=== PATIENT | female | born 1960 ===

== ENCOUNTER 2017-06-03 11:08 | Inpatient (IN) ==
[2017-06-03 11:55] LABS: Basophils % 0.2 % (0.0-0.8); Eosinophils % 0.1 % (0.00-10.9); Hematocrit 25.9 VOL% (35.7-47.0); Hemoglobin 10.2 GM/DL (12.0-16.0); Immature Granulocytes % 0.8 %; Immature Granulocytes Absolute 0.07 #; Lymphocytes # 0.8 10*3/uL (1.4-4.0); Lymphocytes % 8.8 % (21.3-54.2); Mean Corpuscular HGB Conc 39.4 GM/DL (32-36); Mean Corpuscular Hemoglobin 37 PG (27-34); Mean Corpuscular Volume 94.2 FL (87-102); Mean Platelet Volume 10.1 FL (9.6-12.0); Monocytes # 1.1 10*3/uL (0.11-0.8); Monocytes % 13.1 % (1.7-12.7); Neutrophils # 6.5 10*3/uL (1.4-7.4); Platelet Count 115 T/CUMM (130-400); Red Blood Count 2.75 MC/CUMM (3.8-5.5); White Blood Count 8.5 T/CUMM (4-12)
--- NOTE | 2017-06-03 11:57 | Emergency Department Note ---
Samara Berry Rolonda, am scribing for, and in the presence of, Angel Roper MD 11: 39. Jacquelin Berry James D, MD, personally performed the services described in this documentation, ascribed by Galindo Pascual in my presence, and it is both accurate and complete 148 . Arrival - Arrival Chief Complaint: Abdominal / Flank Pain Stated Complaint: water build up in abdomin ED Nursing Triage Note: Pt c/o distended abd x 4 days. Denies abd pain. Mode of Arrival: Wheelchair Limitations: No Limitations Source: Patient, Old Records Reviewed, RN Notes Reviewed - History of Present Illness HPI Narrative: Pt is a 56 y/o female who presents to the ED with c/o "distended abdomen" with an onset of x4 days. Pt has a PMHx of GI problems, gastritis, and stated that she stopped EtOH usage in March. Mother states that abdomen has gotten worse. Pt confirms SOB and that she has been taking fluid medicine at home. She states that she had fluid drawn off x2 weeks ago. Pt denies dark urine and abdominal pain. No other complaint/pain in ED. Onset (ago): day(s) Consistency: constant Severity: mild Severity scale (1-10): 3 Allergies/Adverse Reactions: Allergies Allergy/AdvReac Type Severity Reaction Status Date / Time No Known Allergies Allergy Verified 12/13/16 08:17 Home Medications: Home Medications Medication Instructions Recorded Confirmed Type Furosemide Tab [Lasix Tab] 20 mg PO DAILY 12/13/16 05/15/17 History Spironolactone [Aldactone] 100 mg PO DAILY 12/13/16 05/15/17 History Metoclopramide Liquid [Reglan 5 mg PO BID 05/15/17 05/15/17 History Liquid] Pantoprazole Tab [Protonix Tab] 40 mg PO DAILY 05/15/17 05/15/17 History Propranolol Tab [Inderal Tab] 10 mg PO TID 05/15/17 05/15/17 History Review of System - Review of System 12 point system: reviewed and no additional remarkable complaints except as stated - Review of System Constitutional: Absent: chills, fever Eyes: Absent: discharge Head/Ears/Nose/Throat: Absent: earache Respiratory: Absent: cough Cardiovascular: Absent: chest pain Gastrointestinal: Absent: abdominal pain ("distended") Musculoskeletal: Absent: arm pain, back pain Skin: Absent: rash Neurological: Absent: headache Psychiatric: Absent: anxiety Endocrine: Absent: cold intolerance Hematological/Lymphatic: Absent: easy bleeding Allergic/Immunologic: Absent: facial swelling Medical,Surgical,& Family Hx - Medical History Cardio: No history of: Cardiac Dysrhythmia, [place], Pacemaker Neurology: No history of: Cerebral Hemorrhage, Migraine, Seizures HEENT: No history of: Ear Problem, Eye Problem, Dental Problems Respiratory: History of: Respiratory Problems (sob with exertion) Genitourinary: History of: Problems (oliguria) Gastrointestinal: History of: GERD, Liver Problems (alcoholic cirrhosis, hemachromatosis), GI Problems (ascites and constipation) Hematology: No history of: Anemia, Blood Transfusion Reaction Other: History of: Miscellaneous Medical Problems (alcholism) No history of: Anesthesia Reactions, Cancer - Surgical History Cardiac Surgeries: Patient Denies: Cardiac Catheterization, Carotid Endarterectomy Neurologic Surgeries: Patient denies: Cerebral Hemorrhage HEENT Surgeries: Patient denies: Carotid Endarterectomy, Eye Surgery, Tonsilectomy & Adenoidectomy Abdominal Surgeries: Patient denies: Abdominal Surgery, Appendectomy, Cholecystectomy, Colonoscopy , EGD Reproductive Surgeries: Surgical HX of;: Section (x 1), Dilation and Curettage (x1) Orthopedic Surgeries: Surgical HX of;: Orthopedic Surgery (left wrist) - Family History Family History: Reports;: Family Diabetes (mother) - Social History Smoking Status: Former smoker Exam Vital Signs: Vital Signs Temperature 98.3 F 06/03/17 11:20 Pulse Rate 87 06/03/17 14:45 Respiratory Rate 18 06/03/17 13:45 Blood Pressure 109/66 06/03/17 14:45 O2 Sat by Pulse Oximetry 100 06/03/17 14:45 GENERAL: This is a female, chronically ill-appearing in no apparent distress. VITAL SIGNS: Reviewed HEENT: Head is atraumatic and normocephalic. Pupils are equal round react to light. Extraocular movements are intact. Scleral icterus. Ecchymoses of the nasolabial folds bilaterally. Oropharynx is benign with moist mucous membranes. NECK: Neck is soft and supple without tenderness. There are no masses. There is no lymphadenopathy. LUNGS: Lungs are clear to auscultation. Chest rises symmetrically. There is no chest wall tenderness. CV: Heart is regular rate and rhythm with 2/6 systolic ejection murmur at the left sternal border. ABDOMEN: Abdomen is soft, nontender to palpation. Abdomen is distended with fluid. Liver edge is palpable about 2-3 fingerbreadths below the right costal margin. SKIN: Skin is warm and dry. No rash. EXTREMITIES: Patient has full range of motion without tenderness. There is 2-3 + pitting pedal edema. NEUROLOGIC: Awake, oriented to person. Cranial nerves II through XII are grossly intact. Motor is 5 over 5 in all extremities bilaterally. Results - Labs CBC & BMP: 06/03/17 11:42 06/03/17 11:42 Lab Results: I have reviewed the patients labs Labs: Laboratory Tests 06/03/17 11:42 INR 1.4 Disposition Clinical Impression: Cirrhosis, Hyponatremia Case discussed with: patient Disposition: Still a Patient Condition: Stable Time of Disposition: 15:53
[2017-06-03 11:58] LABS: INR 1.4; PT Patient Result 14.7 SECS; Partial Thromboplastin Time 35.4 SECS (0-40)
--- NOTE | 2017-06-03 12:00 | XRay Report ---
XR chest 1V portable Indication: Dyspnea. Chest one view: Lungs are hypoinflated with atelectasis both lung bases. Additionally, para bronchial thickening of the lungs noted. No focal pneumonia. Heart size is normal. Mediastinal contours unremarkable. Couple of calcified granulomata are present. Impression: Bibasilar atelectasis. Interstitial prominence of the lungs with peribronchial thickening suggests underlying airways disease. PROCEDURE INTERPRETED AT [facility] DEPARTMENT OF RADIOLOGY Final Report Signed by: Rogelio Bernstein M.D.
[2017-06-03 12:14] LABS: Hypochromasia 2+
[2017-06-03 12:29] LABS: Albumin 1.9 G/DL (3.4-5.0); Bilirubin,Total 4.1 MG/DL (0.2-1.0); Calcium 7.9 MG/DL (8.5-10.1); Osmolality,Calculated 224.6 MOS/KG (273-304); Potassium 4.4 MMOL/L (3.5-5.1)
[2017-06-03] MEDS ORDERED: GLUCAGON 1 MG VIAL IM PRN (16:05)
[2017-06-03] MEDS ORDERED: ONDANSETRON 4 MG/2 ML VIAL IV PRN (16:05)
[2017-06-03] MEDS ORDERED: DEXTROSE 50% 25 GM/50 ML SYRINGE IV PRN (16:05)
[2017-06-03] MEDS ORDERED: MORPHINE 2 MG/1 ML SYRINGE IV PRN (16:05)
[2017-06-03] MEDS ORDERED: ALBUTEROL 2.5 MG/3 ML NEB RESP TX PRN (16:05)
[2017-06-03] MEDS ORDERED: ALBUMIN 25% 12.5 GM/50 ML VIAL IV ONE (16:18)
[2017-06-03] MEDS ORDERED: FAMOTIDINE 20 MG/2 ML VIAL IV SCH (16:30)
[2017-06-03] MEDS ORDERED: ALBUMIN 25% 12.5 GM in PREMIX 1 EACH IV ONE (16:38)
--- NOTE | 2017-06-03 16:54 | Hospitalist History & Physical ---
Assessment and Plan - Time spent with patient Time spent with patient: Greater than 30 minutes (1) Hyponatremia Status: Acute Assessment and plan: Admit to ICU for close monitoring. Consult GI. Will start IV diuretics. Will repeat labs in the a.m. Will discuss with Dr Rodriguez for further recommendations with care. Current Visit: Yes (2) Cirrhosis Status: Acute Assessment and plan: ADmit; consult GI; paracentesis in the ED was performed; will monitor closely in ICU. Current Visit: Yes History of Present Illness Chief complaint: abdominal distention/discomfort History of present illness: Ms. Breaux is a 56 year old [place] female with PMHx of oliguria, GERD, alcoholic cirrhosis, hemachromatosis, ascites and constipation; presented to the ED with c/o "distended abdomen" with an onset x4 days. She reports stopped alcohol usage in March. She denies nausea, vomiting, fever, chills, chest pain or shortness of breath. She denies abdominal pain or tenderness. She reports feeling "uncomfortable and swollen in her stomach". In ED: CXR: bibasilar atelectasis; interstitial prominence of the lungs with peribronchial thickening suggests underlying airways disease. Paracentesis will be performed in the ED. LABS: H&H 10.2 & 25.9; Plt 115; INR 1.4; PT 14.7; Sodium 110; Alkaline Phospatase 128; Albumin 1.9. Hospital Services consulted for admission and further evaluation. Dr Bernstein from IR will perform paracentesis. GI will be consulted. After discussion with Dr Roper in the ED and Dr Rodriguez with Hospitalist Services, it was agreed to admit patient for further evaluation and treatment. Home medications will be reviewed and reconciliation to follow. Home Medications Medication Instructions Recorded Confirmed Type Furosemide Tab [Lasix Tab] 20 mg PO DAILY 12/13/16 05/15/17 History Spironolactone [Aldactone] 100 mg PO DAILY 12/13/16 05/15/17 History Metoclopramide Liquid [Reglan 5 mg PO BID 05/15/17 05/15/17 History Liquid] Pantoprazole Tab [Protonix Tab] 40 mg PO DAILY 05/15/17 05/15/17 History Propranolol Tab [Inderal Tab] 10 mg PO TID 05/15/17 05/15/17 History Allergies Allergy/AdvReac Type Severity Reaction Status Date / Time No Known Allergies Allergy Verified 12/13/16 08:17 Medical,Surgical,& Family Hx - Medical History Cardio: No history of: Cardiac Dysrhythmia, [place], Pacemaker Neurology: No history of: Cerebral Hemorrhage, Migraine, Seizures HEENT: No history of: Ear Problem, Eye Problem, Dental Problems Respiratory: History of: Respiratory Problems (sob with exertion) Genitourinary: History of: Problems (oliguria) Gastrointestinal: History of: GERD, Liver Problems (alcoholic cirrhosis, hemachromatosis), GI Problems (ascites and constipation) Hematology: No history of: Anemia, Blood Transfusion Reaction Other: History of: Miscellaneous Medical Problems (alcholism) No history of: Anesthesia Reactions, Cancer - Surgical History Cardiac Surgeries: Patient Denies: Cardiac Catheterization, Carotid Endarterectomy Neurologic Surgeries: Patient denies: Cerebral Hemorrhage HEENT Surgeries: Patient denies: Carotid Endarterectomy, Eye Surgery, Tonsilectomy & Adenoidectomy Abdominal Surgeries: Patient denies: Abdominal Surgery, Appendectomy, Cholecystectomy, Colonoscopy , EGD Reproductive Surgeries: Surgical HX of;: Section (x 1), Dilation and Curettage (x1) Orthopedic Surgeries: Surgical HX of;: Orthopedic Surgery (left wrist) - Family History Family History: Reports;: Family Diabetes (mother) - Social History Smoking Status: Former smoker Frequency of Alcohol Use: None (Reports stop drinking alcohol in March) Type of Drug Use: None Lives With:: Children (children live with her and grandchildren) Functional capacity: independent ambulation Review of systems: ROS completed and pertinent positives and negatives in the HPI. Exam - Constitutional Vitals: Period Temp Pulse Resp BP Sys/Dior Pulse Ox Last 24 Hr 98.3 F-98.3 F 80-108 16-20 106-118/65-77 98-100 General appearance: normal weight - Head Head exam: Present: normal inspection - Eye Eye exam: Present: EOMI Pupils: Present: YOSSI - Neck Neck exam: Present: normal inspection - Respiratory Respiratory exam: Present: clear to auscultation bilaterally. Absent: stridor, wheezes - Cardiovascular Cardiovascular exam: Present: regular rate and rhythm - GI/Abdominal GI/Abdominal exam: Present: normal bowel sounds, ascites, distended, soft. Absent: tenderness, rebound - Extremities Exam Extremities exam: Present: full ROM, edema (2+ peripheral edema lower extremities) - Neurological Exam Neurological exam: Present: alert, oriented X3 - Psychiatric Psychiatric exam: Present: normal affect, normal mood. Absent: agitated, anxious - Skin Skin exam: Present: normal color, warm, dry Results - Labs CBC & BMP: 06/03/17 11:42 06/03/17 11:42 Lab Results: I have reviewed the past 24 hour labs - Diagnostic Findings Procedure: Chest x-ray: report reviewed by me (Bibasilar atelectasis, interstitial prominence of the lungs with peribronchial thickening suggest underlying airway disease) Quality Measures - VTE Contraindication to Pharmacological VTE Prophylaxis: Coagulopathy
[2017-06-03] MEDS: INSULIN REGULAR 100 UNIT/ML SUBCUT SCH ×2 (17:19→22:10)
--- NOTE | 2017-06-03 17:19 | Ultrasound Report ---
US paracentesis abd w/image Indication: Cirrhosis. Refractory ascites. Ultrasound-guided paracentesis Description: A formal timeout was performed. Maximum sterile barrier technique was used. The left lower quadrant was prepped and draped in sterile fashion. Under sonographic guidance, a 6 Mohawk pigtail catheter was advanced into the ascites using trocar technique. A captured sonographic image documents needle position. The needle was removed. Through the catheter, we obtained a total of 7400 cc of straw-colored ascites. No additional fluid could be obtained. Therefore, the catheter was removed. A bandage was placed at the puncture site. The patient tolerated the procedure well. Medications: Albumin 12.5 g IV. Impression: Ultrasound-guided paracentesis. PROCEDURE INTERPRETED AT [facility] DEPARTMENT OF RADIOLOGY Final Report Signed by: Rogelio Bernstein M.D.
[2017-06-03] MEDS: FUROSEMIDE 40 MG/4 ML VIAL IV SCH (17:50)
--- NOTE | 2017-06-03 18:26 | Gastrointestinal Consult Note ---
Assessment and Plan (1) Hyponatremia Status: Acute Assessment and plan: The hyponatremia in this patient is probably a result of several factors including her cirrhosis which is producing a hyponatremic state in an of itself , the diuretics she is taking including spironolactone and Lasix and her low- sodium diet which was meant to keep excessive fluid from building up in her extremities. She has a low protein state as we can see from her albumin level of 1.9. I agree that she is edematous but I am concerned that giving her further diuretics may exacerbate the low sodium level further. I have not been able to contact Dr. Rodriguez. Not sure that the serum osmolality and urine osmolality will be accurate in the face of ongoing diuretics. We will hold off on ordering these. We can certainly liberalize the patient's salt in her diet in the short-term. If the sodium is worse tomorrow we may consider hypertonic saline in limited volume Current Visit: Yes (2) Alcoholic cirrhosis of liver with ascites Status: Acute Assessment and plan: This patient does have alcoholic cirrhosis as near as we can figure out. She would not consent to a liver biopsy but certainly has a history consistent with this. She has required serial taps since being diagnosed in November 2016. Her liver function is certainly worse than when she was first seen, bilirubin is now up to four-point was previously a 1.0, this may be due to anemia and intravascular hypovolemia. The patient states that she is abstinent from alcohol and I certainly hope this is true. She is already undergone multiple ultrasounds and has had an AFP done this year. We will give her some albumin and may consider transfusion which may improve her function somewhat. I do not see any gross evidence of GI bleeding but she may have had some with her recent colonoscopy. See below. Current Visit: Yes (3) Colon cancer Status: Acute Assessment and plan: This was discovered in a descending colon polyp that was removed during a recent endoscopy on 05/16/17. Photographs were taken of this lesion during the colonoscopy which demonstrates a pedunculated polyp even though the pathology is not reflect this. The polyp had to be macerated and cut up significantly during the suctioning phase and so I believe the margins were likely confused at that point. This patient has not a great candidate for surgery and so I was going to return in 6-12 months to repeat the colonoscopy and look at this area and descending again down the road. I do not believe that this is invasive carcinoma given the pedunculated appearance to the polyp removed. The patient has been apprised of the situation and we will talk about it further during her hospitalization. Current Visit: Yes (4) Anemia Status: Acute Assessment and plan: We will transfuse 2 units of packed red blood cells tonight. I think this will help with her liver function and likely with her ability to hold fluids intravascularly which should help with her sodium ultimately. Current Visit: Yes History of Present Illness Chief complaint: Severe hyponatremia, alcoholic cirrhosis, ascites, colon cancer History of present illness: Ms. Breaux is a 56 year old female who is known to me from previous office visits going back to referral from Krista lowe at the [facility] for jaundice and ascites thought secondary to alcoholic cirrhosis with a elevated iron saturation of 81% who was subsequently underwent a workup back in November 2016 at which time she was discovered to have blood work that showed negative RACHELE ammonia level that was single digits alpha-fetoprotein marker 5.1 alpha-1 antitrypsin level that was normal at 160 PT/INR of only 1.1 total protein and albumin is 7.3 and 2.5 and an ALT and AST of 57/38 and alkaline phosphatase 178 and a bilirubin 1.0. These laboratories were taken on 12/07/16. The patient did have a PT/INR at that time of 11 and 1.15. She had been placed on spironolactone and Lasix at 100 mg and 20 mg respectively which appeared, up until recently, to be keeping her ascites under control. She is required 3 peritoneal taps including this 1 she has just received today which removed 7 L of fluid. She has declined liver biopsy. She did undergo a colonoscopy as recently as 05/16/17 which showed multiple adenomatous including a descending polyp that was sizable at 1.4 cm removed by snare polypectomy--this was found to have a infiltrating adenocarcinoma, in my discussions with Dr. Guillaume the orientation within the polyp was difficult, although this is not reflected in the report. Given the endoscopic appearence, we have planned to rescope in 6-12 months to ensure no recurrence at the site. This admission the patient re-presents for paracentesis but also has profound hyponatremia to a sodium of 110 likely is a combination of effects from the cirrhosis and low- sodium diet as well as diuresis. She has peripheral edema which is fairly significant but I am surprised to see that her BUN and creatinine are relatively intact. Home Medications Medication Instructions Recorded Confirmed Type Furosemide Tab [Lasix Tab] 20 mg PO DAILY 12/13/16 05/15/17 History Spironolactone [Aldactone] 100 mg PO DAILY 12/13/16 05/15/17 History Metoclopramide Liquid [Reglan 5 mg PO BID 05/15/17 05/15/17 History Liquid] Pantoprazole Tab [Protonix Tab] 40 mg PO DAILY 05/15/17 05/15/17 History Propranolol Tab [Inderal Tab] 10 mg PO TID 05/15/17 05/15/17 History Allergies Allergy/AdvReac Type Severity Reaction Status Date / Time No Known Allergies Allergy Verified 12/13/16 08:17 Medical,Surgical,& Family Hx - Medical History Cardio: No history of: Cardiac Dysrhythmia, [place], Pacemaker Neurology: No history of: Cerebral Hemorrhage, Migraine, Seizures HEENT: No history of: Ear Problem, Eye Problem, Dental Problems Respiratory: History of: Respiratory Problems (sob with exertion) Genitourinary: History of: Problems (oliguria) Gastrointestinal: History of: GERD, Liver Problems (alcoholic cirrhosis, hemachromatosis), GI Problems (ascites and constipation) Hematology: No history of: Anemia, Blood Transfusion Reaction Other: History of: Miscellaneous Medical Problems (alcholism) No history of: Anesthesia Reactions, Cancer - Surgical History Cardiac Surgeries: Patient Denies: Cardiac Catheterization, Carotid Endarterectomy Neurologic Surgeries: Patient denies: Cerebral Hemorrhage HEENT Surgeries: Patient denies: Carotid Endarterectomy, Eye Surgery, Tonsilectomy & Adenoidectomy Abdominal Surgeries: Patient denies: Abdominal Surgery, Appendectomy, Cholecystectomy, Colonoscopy , EGD Reproductive Surgeries: Surgical HX of;: Section (x 1), Dilation and Curettage (x1) Orthopedic Surgeries: Surgical HX of;: Orthopedic Surgery (left wrist) - Family History Family History: Reports;: Family Diabetes (mother) - Social History Smoking Status: Former smoker Frequency of Alcohol Use: None Type of Drug Use: None Review of systems: Constitutional: Denies fever, chills, positive for nausea, without vomiting Eyes: Denies dry eyes, but does have some slight scleral icterus HENT: Occasional headaches Cardiovascular: Denies acute chest pain and claudication Respiratory: Some shortness of breath, without wheezing, but does have difficulty breathing especially when lying down, denies cough Gastrointestinal: As noted in the HPI Genitourinary: Denies dysuria and hematuria Neurologic: Denies vision loss, and loss of sensation Musculoskeletal: Admits to some joint swelling, joint stiffness, and muscular weakness Psychiatric: She does have depression without princess symptoms Heme-Lymph: Patient does have some easy bruising, but now lymph node enlargement or tenderness, night sweats, excessive bleeding Allergies-immunologic: Denies pruritus and rhinorrhea Exam - Constitutional Vitals: Period Temp Pulse Resp BP Sys/Dior Pulse Ox Last 24 Hr 98.3 F-98.3 F 68-108 16-20 106-167/65-97 98-100 Exam: Constitutional: Well-developed, well-nourished, alert, and in no acute distress Head and face: Head: Normocephalic atraumatic Eyes: Conjunctiva without injection, she does have some low-grade scleral icterus, pupils equal and round bilaterally Ears: Intact to conversation in both ears Nose: External appearance is normal, nares patent Mouth: Oral mucous membranes moist without erythema dentition noted to have some erosion Neck: Normal appearance, no masses or tenderness, trachea midline Thyroid: Gland midline and appropriate size for age Respiratory: Normal respiratory effort, clear to auscultation without wheezes, rhonchi or rales, slight decreased breath sounds in the bases Cardiovascular: Regular rate and rhythm, normal S1, S2, 2 out of 6 systolic ejection murmur heard best left lower sternal border, the exam is without rubs, or gallops. Gastrointestinal: The patient is having some mild tenderness in palpation near where the paracentesis site was performed. Normal active bowel sounds, tone normal without rigidity or guarding, no masses present, no hepatomegaly, no spleen tip felt. There is some bagginess to the tissue here and some ascites is still present. Patient is having no rectal exam obtained. Lymphatic: Neck without adenopathy, axilla without lymphadenopathy present Musculoskeletal: Right and left lower extremities +2 pitting edema below the knees bilaterally Skin and subcutaneous tissue: No rashes or ulcerations noted, increased lower extremity skin turgor, digits and nails without clubbing/cyanosis/deformities. Neurologic: The patient is grossly oriented to person place and time, cranial nerves show tongue movements are normal with normal tongue extrusion midline, light touch sensation is intact. Psychiatric: No hallucinations or delusions are present, does not appear depressed Results - Labs CBC & BMP: 06/03/17 11:42 06/03/17 11:42 Quality Measures - VTE Contraindication to Pharmacological VTE Prophylaxis: Coagulopathy
[2017-06-03] MEDS ORDERED: ALBUMIN 25% 50 GM in PREMIX 1 EACH IV ONE (19:08)
[2017-06-03] MEDS ORDERED: ALBUMIN 5% 12.5 GM/250 ML VIAL IV ONE (19:09)
[2017-06-03] MEDS ORDERED: SODIUM CHLORIDE 0.9% 250 ML IV PRN (19:48)
[2017-06-03] MEDS ORDERED: HALOPERIDOL 5 MG/ML AMP IM PRN (21:42)
[2017-06-03] MEDS: PROPRANOLOL 10 MG TABLET PO SCH (22:04)
[2017-06-03] MEDS: METOCLOPRAMIDE 10 MG/10 ML UDCUP PO SCH (22:05)
[2017-06-03] MEDS ORDERED: FUROSEMIDE 20 MG/2 ML VIAL IV ONE (23:56)
[2017-06-04] MEDS: NOREPINEPHRINE 8 MG in SODIUM CHLORIDE 0.9% 242 ML IV SCH (02:00)
[2017-06-04] MEDS ORDERED: FUROSEMIDE 20 MG/2 ML VIAL IV ONE (02:54)
[2017-06-04 05:45] LABS: Basophils % 0.3 % (0.0-0.8); Eosinophils % 0.7 % (0.00-10.9); Hematocrit 28.6 VOL% (35.7-47.0); Hemoglobin 10.7 GM/DL (12.0-16.0); Immature Granulocytes % 0.7 %; Immature Granulocytes Absolute 0.04 #; Lymphocytes # 0.7 10*3/uL (1.4-4.0); Lymphocytes % 11.7 % (21.3-54.2); Mean Corpuscular HGB Conc 37.4 GM/DL (32-36); Mean Corpuscular Hemoglobin 33 PG (27-34); Mean Corpuscular Volume 88.8 FL (87-102); Mean Platelet Volume 10.2 FL (9.6-12.0); Monocytes # 0.9 10*3/uL (0.11-0.8); Monocytes % 15.4 % (1.7-12.7); Neutrophils # 4.2 10*3/uL (1.4-7.4); Neutrophils % 71.2 % (38.7-73.9); Platelet Count 81 T/CUMM (130-400); Red Blood Count 3.22 MC/CUMM (3.8-5.5); Red Cell Distribution Width 15.8 % (9.3-17.3); White Blood Count 5.9 T/CUMM (4-12)
[2017-06-04 05:56] LABS: INR 1.4; PT Patient Result 15.4 SECS
[2017-06-04 06:14] LABS: Lymphocytes 9 % (20-55); Segmented Neutrophils 82 % (50-85); Total Cells Counted 100
[2017-06-04 06:15] LABS: Hypochromasia 1+; Platelet Estimate Decreased
[2017-06-04 06:22] LABS: Albumin 2.6 G/DL (3.4-5.0); Calcium 8.1 MG/DL (8.5-10.1); Magnesium 1.8 MG/DL (1.8-2.4); Osmolality,Calculated 240.2 MOS/KG (273-304); Potassium 3.3 MMOL/L (3.5-5.1); Total Protein 5.4 G/DL (6.4-8.3)
[2017-06-04 06:28] LABS: Albumin 2.7 G/DL (3.4-5.0); Bilirubin,Direct 1.6 MG/DL (0.0-0.20); Bilirubin,Indirect 5.3 MG/DL (0.0-1.0); Bilirubin,Total 6.9 MG/DL (0.2-1.0); Total Protein 5.2 G/DL (6.4-8.3)
--- NOTE | 2017-06-04 06:59 | Gastrointestinal Progress Note ---
Assessment and Plan (1) Hyponatremia Status: Acute Assessment and plan: The hyponatremia in this patient is probably a result of several factors including her cirrhosis which is producing a hyponatremic state in an of itself , the diuretics she is taking including spironolactone and Lasix and her low- sodium diet which was meant to keep excessive fluid from building up in her extremities. She has a low protein state as we can see from her albumin level of 1.9. I agree that she is edematous but I am concerned that giving her further diuretics may exacerbate the low sodium level further. I have not been able to contact Dr. Rodriguez. Not sure that the serum osmolality and urine osmolality will be accurate in the face of ongoing diuretics. We will hold off on ordering these. We can certainly liberalize the patient's salt in her diet in the short-term. If the sodium is worse tomorrow we may consider hypertonic saline in limited volume 06/04/17--Discussed the case with Dr. Alvaro Rodriguez yesterday evening--Lasix does appear to be pulling of the patient's free water with improvement in her sodium up to 120 today, she developed a little bit of hypotension despite use of the blood and albumin to support her oncotic pressure and improve flow to her liver/ kidneys. Her creatinine appears unchanged, fortunately. She is on some pressors at this point. An abdominal binder is being used to produce counterpressure as her paracentesis site is leaking. He may also slightly slow down third spacing by improving intra-abdominal counterpressure. Current Visit: Yes (2) Alcoholic cirrhosis of liver with ascites Status: Acute Assessment and plan: This patient does have alcoholic cirrhosis as near as we can figure out. She would not consent to a liver biopsy but certainly has a history consistent with this. She has required serial taps since being diagnosed in November 2016. Her liver function is certainly worse than when she was first seen, bilirubin is now up to four-point was previously a 1.0, this may be due to anemia and intravascular hypovolemia. The patient states that she is abstinent from alcohol and I certainly hope this is true. She is already undergone multiple ultrasounds and has had an AFP done this year. We will give her some albumin and may consider transfusion which may improve her function somewhat. I do not see any gross evidence of GI bleeding but she may have had some with her recent colonoscopy. See below. 06/04/17--The patient has an elevated indirect bilirubin fraction indicating a large amount of hemolyzed blood in the 2 units that the patient received versus the patient's underlying cirrhosis or possibly hemolysis this occurring in the patient's bloodstream. We will simply watch with the bilirubin does over time. Sodium is slowly improving, continue current therapy. Current Visit: Yes (3) Colon cancer Status: Acute Assessment and plan: This was discovered in a descending colon polyp that was removed during a recent endoscopy on 05/16/17. Photographs were taken of this lesion during the colonoscopy which demonstrates a pedunculated polyp even though the pathology is not reflect this. The polyp had to be macerated and cut up significantly during the suctioning phase and so I believe the margins were likely confused at that point. This patient has not a great candidate for surgery and so I was going to return in 6-12 months to repeat the colonoscopy and look at this area and descending again down the road. I do not believe that this is invasive carcinoma given the pedunculated appearance to the polyp removed. The patient has been apprised of the situation and we will talk about it further during her hospitalization. 06/04/17--Thought to be in the patient's descending colon polyp, recheck in 6-12 months with repeat colonoscopy. Current Visit: Yes (4) Anemia Status: Acute Assessment and plan: We will transfuse 2 units of packed red blood cells tonight. I think this will help with her liver function and likely with her ability to hold fluids intravascularly which should help with her sodium ultimately. 06/04/17--Posttransfusion the patient's hematocrit went up about 3%. I suspect this will improve further with additional diuresis. The patient's current hematocrit is 28.6%. Current Visit: Yes Gastroenterology - PN: Subj Interval history: Patient has had a little bit of leakage from her paracentesis site over the evening time, I have asked the nurses to apply an abdominal binder on top of the dressing which should help produce counterpressure and stop this. She has had to go on some Levophed to maintain her pressures, this despite getting 2 units of packed red blood cells in the albumin last night. The abdominal binder may help produce counterpressure in her portal system to a slight degree as well. We need to watch her kidney function closely as well with the Lasix she is getting. Exam (Progress Note) - Constitutional Vitals: Period Temp Pulse Resp BP Sys/Dior Pulse Ox Last 24 Hr 97.9 F-98.9 F 68-108 14-25 76-167/34-97 95-100 General appearance: mild distress - Head Head exam: Present: normocephalic - Eye Eye exam: Present: EOMI - Respiratory Respiratory exam: Present: clear to auscultation bilaterally - Cardiovascular Cardiovascular exam: Present: regular rate and rhythm - GI/Abdominal GI/Abdominal exam: Present: normal bowel sounds, ascites, tenderness (Left lower abdomen/left lateral abdomen), soft - Extremities Exam Extremities exam: Present: edema - Psychiatric Psychiatric exam: Present: normal affect, normal mood - Skin Skin exam: Present: warm Results - Labs CBC & BMP: 06/04/17 05:01 06/04/17 05:01
[2017-06-04] MEDS: INSULIN REGULAR 100 UNIT/ML SUBCUT SCH ×4 (07:30→20:12)
[2017-06-04] MEDS: PROPRANOLOL 10 MG TABLET PO SCH ×3 (08:55→20:14)
[2017-06-04] MEDS: PANTOPRAZOLE 40 MG TABLET PO SCH (08:56)
[2017-06-04] MEDS: METOCLOPRAMIDE 10 MG/10 ML UDCUP PO SCH ×2 (08:56→20:23)
[2017-06-04] MEDS: FUROSEMIDE 40 MG/4 ML VIAL IV SCH ×2 (08:58→16:05)
[2017-06-04] MEDS ORDERED: SPIRONOLACTONE 100 MG TABLET PO SCH (09:00)
--- NOTE | 2017-06-04 10:05 | Hospitalist Progress Note ---
Assessment and Plan (1) Alcoholic cirrhosis of liver with ascites Status: Acute Assessment and plan: The patient continues intensive care unit monitoring today. Sodium has improved after discontinuing diuretic medications. The patient has received blood transfusion to improve oncotic pressure and oxygen transfer. We will recheck electrolytes and blood pressure tomorrow and hopefully transfer to the floor at that time. I coordinated care with Dr. Avalos. Current Visit: Yes (2) Hyponatremia Status: Acute Current Visit: Yes Hospitalist: Subjective Interval history: This is a cirrhotic patient with ascites who had paracentesis in the emergency room. The patient has hypotension despite transfusion volume given. The patient is still requiring some Levophed in the intensive care unit and will require continued monitoring today. Hopefully she will be well enough to transfer to the floor tomorrow. Exam - Constitutional Vitals: Period Temp Pulse Resp BP Sys/Dior Pulse Ox Last 24 Hr 97.9 F-100.8 F 68-110 14-25 76-167/34-97 95-100 Exam: Constitutional System: Mild distress. No tremulousness. Head: Normocephalic, atraumatic. Ears, Nose and Throat System: No evidence of Otitis or Mastoiditis. No epistaxis or discharge Eyes System: Pupils equal, round, and reactive. Extraocular muscles intact. Neck: Supple, without adenopathy, No jugular venous distention. No thyromegaly , neck mass, or prior surgery apparent. Respiratory System: Chest clear to auscultation. Cardiovascular System: Heart with regular rate and rhythm. No murmur. GI System: Abdomen soft, nontender. Some protuberance remains Normo active bowel sounds present. Musculoskeletal System: limbs with 2+ pedal edema. Full distal pulses. Neurological System: No discernable sensory deficit. No aphasia Psychiatric System: Conversation is rational Results - Labs CBC & BMP: 06/04/17 05:01 06/04/17 07:33 Lab Results: I have reviewed the past 24 hour labs Quality Measures - VTE Contraindication to Pharmacological VTE Prophylaxis: Coagulopathy
[2017-06-04] MEDS ORDERED: ALBUMIN 25% 50 GM in PREMIX 1 EACH IV ONE (16:24)
[2017-06-05] MEDS: NOREPINEPHRINE 8 MG in SODIUM CHLORIDE 0.9% 242 ML IV SCH (01:25)
[2017-06-05] MEDS: INSULIN REGULAR 100 UNIT/ML SUBCUT SCH ×4 (08:05→21:13)
[2017-06-05] MEDS: PROPRANOLOL 10 MG TABLET PO SCH ×3 (08:06→21:12)
[2017-06-05] MEDS: FUROSEMIDE 40 MG/4 ML VIAL IV SCH ×2 (08:43→16:07)
[2017-06-05] MEDS: PANTOPRAZOLE 40 MG TABLET PO SCH (08:43)
[2017-06-05] MEDS: METOCLOPRAMIDE 10 MG/10 ML UDCUP PO SCH ×2 (08:43→21:12)
--- NOTE | 2017-06-05 09:01 | Physician Query Form ---
CLICK EDIT DOCUMENT TO SELECT QUERY ANSWER --> OK --> SIGN Ashley Causey RN, CCDS Certified Clinical Construction Services Technician W) [phone] (f) [phone] [email or web address]: Make your selection(s) from the choices in EACH section by typing an "x" and enter comments in the comment section. Please use your independent medical judgment in providing your response. This request does not imply that any particular answer is desired or expected. CLINICAL INDICATORS: (Providers should not edit this section) The medical record indicates that the patient was admitted with Cirrhosis, ascites, "removed 7 L of fluid" today, Pressure dropped to 76/34, "albumin to support her oncotic pressure", two units of blood given and the patient appears to have been on "Norepinephrine" for over 24 hours. Please clarify which, if any, of the following is the etiology of the above symptoms and treatment rendered: (x ) Hypovolemic shock ( ) Septic shock ( ) Cardiogenic shock ( ) Hemorrhagic shock ( ) Traumatic shock ( ) Shock due to, please specify etiology: ( ) Shock, unknown etiology ( ) Drug induced, please specify substance: ( ) Iatrogenic Hypotension ( ) Orthostatic Hypotension ( ) Hypotension, unknown etiology ( ) Other, please specify: ( ) Clinically unable to determine COMMENTS: PLEASE ALSO DOCUMENT RESPONSE IN PROGRESS NOTES AND/OR DISCHARGE SUMMARY Use of terms such as suspected, likely, or probable (associated with a specific diagnosis that is being evaluated, monitored, or treated as if it exists) are acceptable and can be restated in the discharge summary if not ruled out. MTDD
--- NOTE | 2017-06-05 11:22 | Hospitalist Progress Note ---
Assessment and Plan (1) Alcoholic cirrhosis of liver with ascites Status: Acute Assessment and plan: The patient continues intensive care unit monitoring today. Sodium has improved after discontinuing diuretic medications. The patient has received blood transfusion to improve oncotic pressure and oxygen transfer. The patient' s blood pressure is marginal but safe for transfer to the floor now that she has been weaned from Levophed. The patient will require rehab trainer while on the floor. Current Visit: Yes (2) Hyponatremia Status: Acute Current Visit: Yes Hospitalist: Subjective Interval history: The patient is awake and alert. She had 7 L paracentesis yesterday but states that her abdomen remains with a sensation of fullness today. Blood pressure is relatively low and Levophed was started during the night. I coordinated care with the patient's nurse and discussed goal of treatment for the patient's blood pressure. Exam - Constitutional Vitals: Period Temp Pulse Resp BP Sys/Dior Pulse Ox Last 24 Hr 99 F-100.2 F 79-100 14-24 81-132/41-74 93-100 Exam: Constitutional System: No distress. No tremulousness. Head: Normocephalic, atraumatic. Ears, Nose and Throat System: No evidence of Otitis or Mastoiditis. No epistaxis or discharge Eyes System: Pupils equal, round, and reactive. Extraocular muscles intact. Neck: Supple, without adenopathy, No jugular venous distention. No thyromegaly , neck mass, or prior surgery apparent. Respiratory System: Chest clear to auscultation. Cardiovascular System: Heart with regular rate and rhythm. No murmur. GI System: Abdomen soft, nontender. Some protuberance remains Normo active bowel sounds present. Musculoskeletal System: limbs with 2+ pedal edema. Full distal pulses. Neurological System: No discernable sensory deficit. No aphasia Psychiatric System: Conversation is rational Results - Labs CBC & BMP: 06/04/17 05:01 06/04/17 13:35 Lab Results: I have reviewed the past 24 hour labs Quality Measures - VTE Contraindication to Pharmacological VTE Prophylaxis: Coagulopathy
--- NOTE | 2017-06-05 13:52 | Gastrointestinal Progress Note ---
Assessment and Plan (1) Hyponatremia Status: Acute Assessment and plan: The hyponatremia in this patient is probably a result of several factors including her cirrhosis which is producing a hyponatremic state in an of itself , the diuretics she is taking including spironolactone and Lasix and her low- sodium diet which was meant to keep excessive fluid from building up in her extremities. She has a low protein state as we can see from her albumin level of 1.9. I agree that she is edematous but I am concerned that giving her further diuretics may exacerbate the low sodium level further. I have not been able to contact Dr. Rodriguez. Not sure that the serum osmolality and urine osmolality will be accurate in the face of ongoing diuretics. We will hold off on ordering these. We can certainly liberalize the patient's salt in her diet in the short-term. If the sodium is worse tomorrow we may consider hypertonic saline in limited volume 06/04/17--Discussed the case with Dr. Alvaro Rodriguez yesterday evening--Lasix does appear to be pulling of the patient's free water with improvement in her sodium up to 120 today, she developed a little bit of hypotension despite use of the blood and albumin to support her oncotic pressure and improve flow to her liver/ kidneys. Her creatinine appears unchanged, fortunately. She is on some pressors at this point. An abdominal binder is being used to produce counterpressure as her paracentesis site is leaking. He may also slightly slow down third spacing by improving intra-abdominal counterpressure. 06/05/17--The sodium level was not checked this morning, have written for a BMP to be done now. Seems to be tolerating the abdominal binder adequately. Current Visit: Yes (2) Alcoholic cirrhosis of liver with ascites Status: Acute Assessment and plan: This patient does have alcoholic cirrhosis as near as we can figure out. She would not consent to a liver biopsy but certainly has a history consistent with this. She has required serial taps since being diagnosed in November 2016. Her liver function is certainly worse than when she was first seen, bilirubin is now up to four-point was previously a 1.0, this may be due to anemia and intravascular hypovolemia. The patient states that she is abstinent from alcohol and I certainly hope this is true. She is already undergone multiple ultrasounds and has had an AFP done this year. We will give her some albumin and may consider transfusion which may improve her function somewhat. I do not see any gross evidence of GI bleeding but she may have had some with her recent colonoscopy. See below. 06/04/17--The patient has an elevated indirect bilirubin fraction indicating a large amount of hemolyzed blood in the 2 units that the patient received versus the patient's underlying cirrhosis or possibly hemolysis this occurring in the patient's bloodstream. We will simply watch with the bilirubin does over time. Sodium is slowly improving, continue current therapy. 06/05/17--Continue to watch the patient, repeat liver function test tomorrow. Current Visit: Yes (3) Colon cancer Status: Acute Assessment and plan: This was discovered in a descending colon polyp that was removed during a recent endoscopy on 05/16/17. Photographs were taken of this lesion during the colonoscopy which demonstrates a pedunculated polyp even though the pathology is not reflect this. The polyp had to be macerated and cut up significantly during the suctioning phase and so I believe the margins were likely confused at that point. This patient has not a great candidate for surgery and so I was going to return in 6-12 months to repeat the colonoscopy and look at this area and descending again down the road. I do not believe that this is invasive carcinoma given the pedunculated appearance to the polyp removed. The patient has been apprised of the situation and we will talk about it further during her hospitalization. 06/04/17--Thought to be in the patient's descending colon polyp, recheck in 6-12 months with repeat colonoscopy. 06/05/17--Repeat colonoscopy in 6-12 months due to cancer in this polyp. Current Visit: Yes (4) Anemia Status: Acute Assessment and plan: We will transfuse 2 units of packed red blood cells tonight. I think this will help with her liver function and likely with her ability to hold fluids intravascularly which should help with her sodium ultimately. 06/04/17--Posttransfusion the patient's hematocrit went up about 3%. I suspect this will improve further with additional diuresis. The patient's current hematocrit is 28.6%. 06/05/17--Follow patient's hematocrit tomorrow along with LFTs. Current Visit: Yes Gastroenterology - PN: Subj Interval history: No new complaints. Surprisingly sodium not checked this morning even though this have been down to 110 on admission. Exam (Progress Note) - Constitutional Vitals: Period Temp Pulse Resp BP Sys/Dior Pulse Ox Last 24 Hr 99 F-100.2 F 79-100 12-24 81-132/41-74 94-100 General appearance: no acute distress - Eye Eye exam: Present: EOMI Pupils: Present: YOSSI - Respiratory Respiratory exam: Present: clear to auscultation bilaterally. Absent: rhonchi, stridor, wheezes - Cardiovascular Cardiovascular exam: Present: regular rate and rhythm - GI/Abdominal GI/Abdominal exam: Present: normal bowel sounds, soft. Absent: tenderness ( Patient does have on abdominal binder to help with the paracentesis site leakage ), rebound - Extremities Exam Extremities exam: Present: edema (Trace) - Neurological Exam Neurological exam: Present: alert, oriented X3 - Psychiatric Psychiatric exam: Present: normal affect, normal mood - Skin Skin exam: Present: warm Results - Labs CBC & BMP: 06/04/17 05:01 06/04/17 13:35
[2017-06-05 14:53] LABS: Calcium 7.8 MG/DL (8.5-10.1); Osmolality,Calculated 249.5 MOS/KG (273-304); Potassium 2.6 MMOL/L (3.5-5.1)
[2017-06-05] MEDS: POTASSIUM CHLORIDE 20 MEQ TABLET PO SCH ×2 (16:05→21:12)
[2017-06-05] MEDS: LACTULOSE 20 GM/30 ML UDCUP PO SCH (21:12)
[2017-06-06] MEDS: POTASSIUM CHLORIDE 20 MEQ TABLET PO SCH (02:05)
[2017-06-06 05:33] LABS: Basophils % 0.3 % (0.0-0.8); Eosinophils % 0.2 % (0.00-10.9); Hematocrit 29.6 VOL% (35.7-47.0); Immature Granulocytes % 0.5 %; Immature Granulocytes Absolute 0.04 #; Lymphocytes # 1.2 10*3/uL (1.4-4.0); Mean Corpuscular HGB Conc 37.2 GM/DL (32-36); Mean Corpuscular Hemoglobin 35 PG (27-34); Mean Corpuscular Volume 93.1 FL (87-102); Mean Platelet Volume 10.1 FL (9.6-12.0); Monocytes # 1.2 10*3/uL (0.11-0.8); Monocytes % 14.2 % (1.7-12.7); Neutrophils # 6.1 10*3/uL (1.4-7.4); Neutrophils % 70.8 % (38.7-73.9); Red Blood Count 3.18 MC/CUMM (3.8-5.5); Red Cell Distribution Width 18.1 % (9.3-17.3); White Blood Count 8.6 T/CUMM (4-12)
[2017-06-06 05:36] LABS: Platelet Count 87 T/CUMM (130-400)
[2017-06-06 05:53] LABS: Hypochromasia 1+
[2017-06-06 05:54] LABS: Microcytosis Slight; Platelet Estimate Decreased; Spherocytes Slight
[2017-06-06 06:01] LABS: Calcium 8.1 MG/DL (8.5-10.1); Magnesium 1.9 MG/DL (1.8-2.4); Osmolality,Calculated 248.5 MOS/KG (273-304); Potassium 3.5 MMOL/L (3.5-5.1)
[2017-06-06 06:16] LABS: Albumin 2.5 G/DL (3.4-5.0); Bilirubin,Indirect 1.6 MG/DL (0.0-1.0); Bilirubin,Total 2.6 MG/DL (0.2-1.0)
[2017-06-06] MEDS: INSULIN REGULAR 100 UNIT/ML SUBCUT SCH ×4 (07:58→21:00)
[2017-06-06] MEDS: METOCLOPRAMIDE 10 MG/10 ML UDCUP PO SCH ×2 (08:38→20:20)
[2017-06-06] MEDS: PANTOPRAZOLE 40 MG TABLET PO SCH (08:38)
[2017-06-06] MEDS: FUROSEMIDE 40 MG/4 ML VIAL IV SCH ×2 (08:38→15:55)
[2017-06-06] MEDS: PROPRANOLOL 10 MG TABLET PO SCH ×3 (08:38→20:20)
[2017-06-06] MEDS: LACTULOSE 20 GM/30 ML UDCUP PO SCH ×2 (08:38→20:20)
--- NOTE | 2017-06-06 09:12 | Hospitalist Progress Note ---
Assessment and Plan (1) Hyponatremia Status: Acute Assessment and plan: Her serum sodium remains 125 today. I will continue her present treatment. Current Visit: Yes (2) Alcoholic cirrhosis of liver with ascites Status: Acute Assessment and plan: Her abdominal distention is significantly improved post paracenteses. She continues to be followed by gastroenterology. Current Visit: Yes (3) Colon cancer Status: Acute Assessment and plan: As per gastroenterology. Current Visit: Yes Hospitalist: Subjective Interval history: Patient has been hospitalized with alcoholic cirrhosis with ascites and hyponatremia. She underwent a paracentesis removing 7 L of ascitic fluid. He continues treatment with intravenous normal saline and diuretics for her hyponatremia. Exam - Constitutional Vitals: Period Temp Pulse Resp BP Sys/Dior Pulse Ox Last 24 Hr 97.1 F-98.6 F 75-90 12-20 91-132/54-74 92-100 General appearance: no acute distress - Head Head exam: Present: normal inspection - Neck Neck exam: Present: normal inspection - Respiratory Respiratory exam: Present: clear to auscultation bilaterally - Cardiovascular Cardiovascular exam: Present: regular rate and rhythm - GI/Abdominal GI/Abdominal exam: Present: normal bowel sounds, distended, soft, other ( Nontender with no palpable masses or hepatosplenomegaly.) - Extremities Exam Extremities exam: Present: normal inspection - Neurological Exam Neurological exam: Present: alert, oriented X3 - Skin Skin exam: Present: normal color, warm, intact Results - Labs CBC & BMP: 06/06/17 05:16 06/06/17 05:15 Quality Measures - VTE Contraindication to Pharmacological VTE Prophylaxis: Coagulopathy
--- NOTE | 2017-06-06 19:06 | Gastrointestinal Progress Note ---
Assessment and Plan (1) Hyponatremia Status: Acute Assessment and plan: The hyponatremia in this patient is probably a result of several factors including her cirrhosis which is producing a hyponatremic state in an of itself , the diuretics she is taking including spironolactone and Lasix and her low- sodium diet which was meant to keep excessive fluid from building up in her extremities. She has a low protein state as we can see from her albumin level of 1.9. I agree that she is edematous but I am concerned that giving her further diuretics may exacerbate the low sodium level further. I have not been able to contact Dr. Rodriguez. Not sure that the serum osmolality and urine osmolality will be accurate in the face of ongoing diuretics. We will hold off on ordering these. We can certainly liberalize the patient's salt in her diet in the short-term. If the sodium is worse tomorrow we may consider hypertonic saline in limited volume 06/04/17--Discussed the case with Dr. Alvaro Rodriguez yesterday evening--Lasix does appear to be pulling of the patient's free water with improvement in her sodium up to 120 today, she developed a little bit of hypotension despite use of the blood and albumin to support her oncotic pressure and improve flow to her liver/ kidneys. Her creatinine appears unchanged, fortunately. She is on some pressors at this point. An abdominal binder is being used to produce counterpressure as her paracentesis site is leaking. He may also slightly slow down third spacing by improving intra-abdominal counterpressure. 06/05/17--The sodium level was not checked this morning, have written for a BMP to be done now. Seems to be tolerating the abdominal binder adequately. 06/06/17--Sodium level is 125, as it was yesterday. It would be nice to get this back up into the 130's, this might be hard using the diuresis to keep her hypervolemic fluid status under control. Hate to liberalize the salt in her diet but this may be required, at the pino of increasing her fluid retention/ ascites. My partners will be covering for this patient this weekend perhaps they have a new strategy for managing this issue. Current Visit: Yes (2) Alcoholic cirrhosis of liver with ascites Status: Acute Assessment and plan: This patient does have alcoholic cirrhosis as near as we can figure out. She would not consent to a liver biopsy but certainly has a history consistent with this. She has required serial taps since being diagnosed in November 2016. Her liver function is certainly worse than when she was first seen, bilirubin is now up to four-point was previously a 1.0, this may be due to anemia and intravascular hypovolemia. The patient states that she is abstinent from alcohol and I certainly hope this is true. She is already undergone multiple ultrasounds and has had an AFP done this year. We will give her some albumin and may consider transfusion which may improve her function somewhat. I do not see any gross evidence of GI bleeding but she may have had some with her recent colonoscopy. See below. 06/04/17--The patient has an elevated indirect bilirubin fraction indicating a large amount of hemolyzed blood in the 2 units that the patient received versus the patient's underlying cirrhosis or possibly hemolysis this occurring in the patient's bloodstream. We will simply watch with the bilirubin does over time. Sodium is slowly improving, continue current therapy. 06/05/17--Continue to watch the patient, repeat liver function test tomorrow. 06/06/17--I note again of the patient's bilirubin has improved by about 2 mg/dL and that this is mostly indirect indicating possible hemolysis versus elevation from the transfused blood. Liver function appears to be doing much better now that her intra-vascular volume is being improved with the use of albumin and blood transfusion. Current Visit: Yes (3) Colon cancer Status: Acute Assessment and plan: This was discovered in a descending colon polyp that was removed during a recent endoscopy on 05/16/17. Photographs were taken of this lesion during the colonoscopy which demonstrates a pedunculated polyp even though the pathology is not reflect this. The polyp had to be macerated and cut up significantly during the suctioning phase and so I believe the margins were likely confused at that point. This patient has not a great candidate for surgery and so I was going to return in 6-12 months to repeat the colonoscopy and look at this area and descending again down the road. I do not believe that this is invasive carcinoma given the pedunculated appearance to the polyp removed. The patient has been apprised of the situation and we will talk about it further during her hospitalization. 06/04/17--Thought to be in the patient's descending colon polyp, recheck in 6-12 months with repeat colonoscopy. 06/05/17--Repeat colonoscopy in 6-12 months due to cancer in this polyp. 06/06/17--We talked more about the diagnosis of the colon cancer in the polyp. Specifically the need for repeat colonoscopy in 6-12 months to look for residual polyps/cancer. Current Visit: Yes (4) Anemia Status: Acute Assessment and plan: We will transfuse 2 units of packed red blood cells tonight. I think this will help with her liver function and likely with her ability to hold fluids intravascularly which should help with her sodium ultimately. 06/04/17--Posttransfusion the patient's hematocrit went up about 3%. I suspect this will improve further with additional diuresis. The patient's current hematocrit is 28.6%. 06/05/17--Follow patient's hematocrit tomorrow along with LFTs. 06/06/17--The hematocrit posttransfusion appears to be improved to about 29%. Continue to follow this periodically through the hospitalization. Current Visit: Yes Gastroenterology - PN: Subj Interval history: Ms. Breaux is doing adequately, her sodium levels seem to have plateaued at 125 range. She still seems hypervolemic to me, ascites is stable and peripheral edema seems like it is doing all right. Her hematocrit seems stable as well currently at 29.6% up from 25.9% on admission. Her ammonia level is adequate at 17 on her current regimen of lactulose and Xifaxan. She is only had one bowel movement today. Exam (Progress Note) - Constitutional Vitals: Period Temp Pulse Resp BP Sys/Dior Pulse Ox Last 24 Hr 97.1 F-98.6 F 73-90 16-20 92-103/54-62 92-100 General appearance: no acute distress - Head Head exam: Present: normocephalic - Eye Eye exam: Present: EOMI. Absent: scleral icterus - Neck Neck exam: Present: normal inspection - Respiratory Respiratory exam: Present: clear to auscultation bilaterally. Absent: rhonchi, stridor, wheezes - Cardiovascular Cardiovascular exam: Present: regular rate and rhythm - GI/Abdominal GI/Abdominal exam: Present: normal bowel sounds, ascites, distended, soft. Absent: guarding, tenderness, rebound - Neurological Exam Neurological exam: Present: alert, oriented X3, CN II-XII intact. Absent: motor sensory deficit - Psychiatric Psychiatric exam: Present: normal affect, normal mood - Skin Skin exam: Present: warm Results - Labs CBC & BMP: 06/06/17 05:16 06/06/17 05:15
[2017-06-07 05:34] LABS: Basophils % 0.4 % (0.0-0.8); Eosinophils # 0.2 10*3/uL (0.0-0.87); Eosinophils % 3.3 % (0.00-10.9); Hematocrit 29.7 VOL% (35.7-47.0); Hemoglobin 11.2 GM/DL (12.0-16.0); Immature Granulocytes % 0.9 %; Immature Granulocytes Absolute 0.06 #; Lymphocytes # 1.3 10*3/uL (1.4-4.0); Lymphocytes % 18.4 % (21.3-54.2); Mean Corpuscular HGB Conc 37.7 GM/DL (32-36); Mean Corpuscular Hemoglobin 35 PG (27-34); Mean Corpuscular Volume 92.8 FL (87-102); Monocytes # 1.3 10*3/uL (0.11-0.8); Monocytes % 18.6 % (1.7-12.7); Neutrophils # 4.1 10*3/uL (1.4-7.4); Neutrophils % 58.4 % (38.7-73.9); Red Cell Distribution Width 17.9 % (9.3-17.3); White Blood Count 7.1 T/CUMM (4-12)
[2017-06-07 05:39] LABS: Platelet Count 91 T/CUMM (130-400)
[2017-06-07 05:59] LABS: Eosinophils 2 % (0-10); Lymphocytes 19 % (20-55); Segmented Neutrophils 62 % (50-85); Total Cells Counted 100
[2017-06-07 06:00] LABS: Microcytosis 1+; Platelet Estimate Decreased
[2017-06-07 06:01] LABS: Hypochromasia 2+
[2017-06-07 06:44] LABS: Calcium 7.9 MG/DL (8.5-10.1); Osmolality,Calculated 246.6 MOS/KG (273-304)
[2017-06-07] MEDS: INSULIN REGULAR 100 UNIT/ML SUBCUT SCH ×4 (07:30→22:03)
[2017-06-07] MEDS: FUROSEMIDE 40 MG/4 ML VIAL IV SCH ×2 (08:55→16:35)
[2017-06-07] MEDS: METOCLOPRAMIDE 10 MG/10 ML UDCUP PO SCH ×2 (08:58→22:03)
[2017-06-07] MEDS: LACTULOSE 20 GM/30 ML UDCUP PO SCH ×2 (08:58→22:03)
[2017-06-07] MEDS: PROPRANOLOL 10 MG TABLET PO SCH ×4 (08:59→22:03)
[2017-06-07] MEDS: PANTOPRAZOLE 40 MG TABLET PO SCH (08:59)
--- NOTE | 2017-06-07 10:31 | Hospitalist Progress Note ---
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 May need addition of Aldactone for better diuresis. Watch for hepatorenal syndrome. She may need repeat paracentesis withold doses of Inderal since blood pressure is slowly trending down. Current Visit: Yes Hospitalist: Subjective Interval history: Patient with a history of CA colon, Liver cirrhosis. Reported hypertension lately. Been diuresed on IV Lasix for ascites. Has had previous paracentesis. No fever Exam - Constitutional Vitals: Period Temp Pulse Resp BP Sys/Dior Pulse Ox Last 24 Hr 96.8 F-99.2 F 68-81 15-20 91-103/52-58 18-96 Exam: General appearance: no acute distress - Head Head exam: Present: normal inspection - Neck Neck exam: Present: normal inspection - Respiratory Respiratory exam: Present: clear to auscultation bilaterally - Cardiovascular Cardiovascular exam: Present: regular rate and rhythm - GI/Abdominal GI/Abdominal exam: Present: normal bowel sounds, distended, soft, other ( Nontender with no palpable masses or hepatosplenomegaly.) - Extremities Exam Extremities exam: Present: normal inspection - Neurological Exam Neurological exam: Present: alert, oriented X3 - Skin Skin exam: Present: normal color, warm, intact Results - Labs CBC & BMP: 06/07/17 04:50 06/07/17 04:50 Lab Results: I have reviewed the past 24 hour labs Quality Measures - VTE Contraindication to Pharmacological VTE Prophylaxis: Coagulopathy
--- NOTE | 2017-06-07 12:53 | Gastrointestinal Progress Note ---
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 Complaints of abdominal discomfort. No bowel movements today on lactulose. Can consider titrating the dose to facilitate 2- 3 bowel movements daily as needed. Plan an addendum to followed by Dr. Billings ( on-call for Dr. Avalos). Current Visit: No Qualifiers: Hepatic cirrhosis type: alcoholic cirrhosis Ascites presence: with ascites Qualified Code(s): K70.31 - Alcoholic cirrhosis of liver with ascites (2) Anemia Status: Acute Assessment and plan: 06/07-H&H is stable 09/11 with no overt bleeding. Received total of 2 units packed red blood cells on admission, no further transfusion has been required. Plan an addendum followed by Dr. Billings. Current Visit: Yes Gastroenterology - PN: Subj Interval history: CC: Cirrhosis, anemia Patient is seen, awake and alert with family at bedside. Patient is being seen by Dr. Billings, for Dr. Avalos who is out of town today. She is noted to have been admitted on 06/03 with complaints of abdominal distention and pain. She has a history of alcoholic cirrhosis as well as hemochromatosis and ascites. Patient was admitted and at that time had a paracentesis in which 4 L were removed however no cell counts were noted to be ordered. She is also noted to have a recent finding of infiltrating adenocarcinoma in the descending colon polyp earlier this month however the decision was made regarding this to do a re -surveillance colonoscopy in 6-12 months due to patient being a poor candidate for surgery. Patient also has a long history of alcoholic use with ascites and cirrhosis. Patient is also noted to have hyponatremia with a sodium of 124 today however no recommendations by Dr. Adair to replace this at this time. Potassium is also noted to be down at 3.0. Patient's ammonia on yesterday was 17. She has had 1 bowel movements a day on lactulose. She is noted to be receiving Lasix 40 mg twice daily as well. Abdomen is soft, distended, tenderness to palpation. Upon evaluation of weights documented, uncertainty as to accuracy due to drastic fluctuations over the last 2 days ROS: Denies shortness of breath or chest Exam (Progress Note) - Constitutional Vitals: Period Temp Pulse Resp BP Sys/Dior Pulse Ox Last 24 Hr 96.8 F-99.2 F 68 15- 88-103/51-58 18- General appearance: normal weight, no acute distress - Head Head exam: Present: normal inspection, normocephalic - Eye Eye exam: Present: other (Lids and conjunctive are unremarkable). Absent: scleral icterus - ENT ENT exam: Present: normal exam, normal oropharynx - Neck Neck exam: Present: normal inspection - Respiratory Respiratory exam: Present: clear to auscultation bilaterally. Absent: rales, rhonchi, wheezes - Cardiovascular Cardiovascular exam: Present: regular rate and rhythm. Absent: diastolic murmur , JVD, systolic murmur - GI/Abdominal GI/Abdominal exam: Present: normal bowel sounds, ascites, distended, tenderness , soft. Absent: mass, organomegaly - Extremities Exam Extremities exam: Present: normal inspection, full ROM - Back Exam Back exam: Present: normal inspection - Neurological Exam Neurological exam: Present: alert, oriented X3 - Psychiatric Psychiatric exam: Present: normal affect, normal mood - Skin Skin exam: Present: normal color, warm, dry Results - Labs CBC & BMP: 06/07/17 04:50 06/07/17 04:50 Lab Results: I have reviewed the past 24 hour labs <Rangel Billings - Last Filed: 06/07/17 14:32> Exam (Progress Note) - Constitutional Vitals: Period Temp Pulse Resp BP Sys/Dior Pulse Ox Last 24 Hr 96.8 F-99.2 F - 88-103/51-58 18-96 Results - Labs CBC & BMP: 06/07/17 04:50 06/07/17 04:50
[2017-06-08] MEDS: FUROSEMIDE 40 MG/4 ML VIAL IV SCH ×2 (08:18→16:15)
[2017-06-08] MEDS: INSULIN REGULAR 100 UNIT/ML SUBCUT SCH ×5 (08:23→23:31)
[2017-06-08] MEDS: LACTULOSE 20 GM/30 ML UDCUP PO SCH ×2 (08:27→23:25)
[2017-06-08] MEDS: PANTOPRAZOLE 40 MG TABLET PO SCH (08:27)
[2017-06-08] MEDS: METOCLOPRAMIDE 10 MG/10 ML UDCUP PO SCH ×2 (08:27→23:25)
[2017-06-08] MEDS: PROPRANOLOL 10 MG TABLET PO SCH ×3 (08:29→23:22)
--- NOTE | 2017-06-08 12:15 | Hospitalist Progress Note ---
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 Watch for hepatorenal syndrome. She may need repeat paracentesis soon Gastroenterology follow-up. Current Visit: Yes Hospitalist: Subjective Interval history: No new changes overnight, she appears to continue to accumulate peritoneal fluid. Soon will require repeat paracentesis. MS is at baseline, was able to communicate with me. No fever. Exam - Constitutional Vitals: Period Temp Pulse Resp BP Sys/Dior Pulse Ox Last 24 Hr 96.3 F-99 F 69-81 14-20 84-95/50-54 92-97 Exam: General appearance: no acute distress - Head Head exam: Present: normal inspection - Neck Neck exam: Present: normal inspection - Respiratory Respiratory exam: Present: clear to auscultation bilaterally - Cardiovascular Cardiovascular exam: Present: regular rate and rhythm - GI/Abdominal GI/Abdominal exam: Present: normal bowel sounds, distended, soft, other ( Nontender with no palpable masses or hepatosplenomegaly.) - Extremities Exam Extremities exam: Present: normal inspection - Neurological Exam Neurological exam: Present: alert, oriented X3 - Skin Skin exam: Present: normal color, warm, intact Results - Labs CBC & BMP: 06/07/17 04:50 06/08/17 11:52 Lab Results: I have reviewed the past 24 hour labs Quality Measures - VTE Contraindication to Pharmacological VTE Prophylaxis: Coagulopathy
[2017-06-08 12:38] LABS: Albumin 2.5 G/DL (3.4-5.0); Bilirubin,Total 2.9 MG/DL (0.2-1.0); Calcium 7.9 MG/DL (8.5-10.1); Osmolality,Calculated 248.6 MOS/KG (273-304); Potassium 2.8 MMOL/L (3.5-5.1); Total Protein 5.3 G/DL (6.4-8.3)
[2017-06-08] MEDS ORDERED: SPIRONOLACTONE 25 MG TABLET PO SCH (21:00)
--- NOTE | 2017-06-08 23:16 | Event Note ---
Nurse called reporting a blood pressure 80/40. Since she is mentating fine and pulse is normal. Blood pressure has been hanging around the 90s systolically. Patient is taking Aldactone, Propanolol and Lasix for diuresis improvement. Advised nurse to hold blood pressure medicines and Lasix until the a.m. Recheck blood pressure and advise as needed.
[2017-06-09 05:20] LABS: Albumin 2.3 G/DL (3.4-5.0); Bilirubin,Total 2.4 MG/DL (0.2-1.0); Calcium 7.7 MG/DL (8.5-10.1); Osmolality,Calculated 246.6 MOS/KG (273-304); Potassium 2.7 MMOL/L (3.5-5.1)
[2017-06-09] MEDS: INSULIN REGULAR 100 UNIT/ML SUBCUT SCH ×4 (07:30→21:11)
[2017-06-09] MEDS ORDERED: POTASSIUM CHLORIDE 20 MEQ PACK PO ONE (08:56)
[2017-06-09] MEDS ORDERED: POTASSIUM CHLORIDE 20 MEQ PACK PO SCH (09:00)
--- NOTE | 2017-06-09 09:01 | Hospitalist Progress Note ---
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 hold blood pressures are too low. We will continue Aldactone and her other diuretics will be as much as her blood pressure would tolerate. We should plan for therapeutic paracentesis tomorrow, watch for hepatorenal syndrome and probably transfuse albumin tomorrow prior to paracentesis. Gastroenterology follow-up. Prognosis is guarded Current Visit: Yes Hospitalist: Subjective Interval history: There is difficulty with achieving good diuresis because of her low blood pressures Most of her medications are behind for hypotension. She has no fever. Mental status is intact Exam - Constitutional Vitals: Period Temp Pulse Resp BP Sys/Dior Pulse Ox Last 24 Hr 96.6 F-98.3 F 68-97 18-20 80-108/39-64 93-100 Exam: General appearance: no acute distress - Head Head exam: Present: normal inspection - Neck Neck exam: Present: normal inspection - Respiratory Respiratory exam: Present: clear to auscultation bilaterally - Cardiovascular Cardiovascular exam: Present: regular rate and rhythm - GI/Abdominal GI/Abdominal exam: Present: normal bowel sounds, distended, soft, other ( Nontender with no palpable masses or hepatosplenomegaly.) - Extremities Exam Extremities exam: Present: normal inspection - Neurological Exam Neurological exam: Present: alert, oriented X3 - Skin Skin exam: Present: normal color, warm, intact Results - Labs CBC & BMP: 06/07/17 04:50 06/09/17 03:48 Lab Results: I have reviewed the past 24 hour labs Quality Measures - VTE Contraindication to Pharmacological VTE Prophylaxis: Coagulopathy
--- NOTE | 2017-06-09 09:21 | Gastrointestinal Progress Note ---
Assessment and Plan - Time spent with patient Time spent with patient: Greater than 30 minutes (1) Alcoholic cirrhosis of liver with ascites Status: Acute Current Visit: Yes (2) Ascites Status: Acute Current Visit: Yes (3) Anemia Status: Acute Current Visit: Yes (4) Other specified counseling Status: Acute Current Visit: Yes Exam (Progress Note) - Constitutional Vitals: Period Temp Pulse Resp BP Sys/Dior Pulse Ox Last 24 Hr 96.6 F-98.3 F 68-97 18-20 80-108/39-64 93-100 Results - Labs CBC & BMP: 06/07/17 04:50 06/09/17 03:48 Note Addendum: PLEASE NOTE -- automatic citation of patient information is unavoidable in this electronic note. I have made a reasonable effort to review the information cited , but it is not a part of my evaluation, impression, or recommendation unless specifically discussed in the dictated text that follows. As well, voice recognition software was used in the creation of this clinical note. Reasonable effort was made to identify and correct gross errors. Despite proofreading, errors in lab instructor may be present, including nonsense verbiage at times. If you encounter such an error, please contact me at for discussion and correction. -- Frankie Chief complaint: altered mental status Subjective: the patient is a 56-year-old female seen for follow-up of alcoholic cirrhosis with portal hypertension and hepatic encephalopathy. She has had at least one bowel movement overnight, and overt blood loss has not been noted. She is tolerating oral intake. Her mental status has improved significantly since her admission and she is oriented to person, place, time, and situation. We had a 15 minute conversation regarding the function of the liver and its importance to life, the importance of alcohol abstinence and maintenance of a low-sodium diet. The patient reports that she wants to live, does not want to from liver disease, and wants to stop alcohol use. She reports her last drink on or about 15 May. Medications: albuterol, Lasix, insulin, lactulose, Reglan, morphine, Zofran, Protonix, potassium chloride Review of Symptoms: 12 point review of symptoms was negative except as noted above Physical examination: Vital Signs: Current vital signs reviewed. General Appearance: lying in bed. Comfortable. Attended by family. Alert and oriented to person, place, time, and situation. Head: Normocephalic. Eyes: no scleral icterus. No scleral injection. No conjunctival pallor. Oral Cavity: Odor of breath was normal. No drooling was observed. Lips showed no abnormalities. Lungs: Respiration rhythm and depth was normal. Cardiovascular: Heart rate and rhythm were normal. Abdomen: abdomen was distended with ascites but not tense. Abdominal auscultation revealed positive bowel sounds. Ascites was discovered and fluid wave was present. Abdominal palpation revealed minimal tenderness and no hepatosplenomegaly but the examination was confounded by the presence of the ascites. Musculoskeletal System: musculoskeletal system was grossly normal. Neurological: level of consciousness was normal. Speech was normal. No coordination/cerebellum abnormalities were noted. Skin: Gen. appearance was normal. Color and pigmentation were normal. No skin lesions were appreciated. No ecchymosis or other bruising is noted. Laboratory: ALT 18, AST 20, alkaline phosphatase 121, total bilirubin 2.4, total protein 5.0, albumin 2.3, sodium 124, potassium 2.7, creatinine 0.5, MELD 14 Radiology: reviewed with no pertinent changes noted. Impressions: #1. Cirrhosis with portal hypertension -- we had an extensive conversation regarding the importance of alcohol abstinence. I advised the patient that there is no safe level of alcohol use, not one drop, not ever again. I advised that she seek substance abuse counseling. I advised that, if she continues to drink, she will continue to decline to the point that her liver will not sustain life. I advised that she will not be a candidate for liver transplant evaluation until she has been abstinent for six months. She expressed understanding, asserted that she does want to live and does want to stop drinking. I recommend continued aggressive volume and electrolyte management, monitoring for signs/symptoms of bacteremia, continued low-sodium diet, and continued dual diuretic therapy for control of ascites. The patient is scheduled for repeat therapeutic paracentesis tomorrow and this is reasonable. Should the patient proved unable to manage ascites with diuretics and should she prove unable to manage electrolytes in that setting, exception points could be granted at the point of transplant evaluation, assuming she is able to maintain abstinence. #2. Portal hypertension with ascites -- the patient is having some difficulty with control as she is probably not following a low-sodium diet. She does not recall having spoken to a liturgical music director for counseling in this regard in the past , and I recommend inpatient consultation both for evaluation of the current diet and for counseling regarding lifestyle measures necessary to maintain a low -sodium diet at home. For the time being, absent a current or past diagnosis of spontaneous bacterial peritonitis, I recommend continued prophylaxis against variceal bleeding with nonselective beta danya. This will need to be titrated to maintain functional systolic blood pressure, i.e. held for systemic hypotension. Repeat paracentesis for therapeutic benefit is reasonable but continuously repetitive paracentesis is a risk factor for secondary peritonitis and is dysfunctional in terms of lifestyle. Should she reach an impasse, consideration should be given to TIPS to control same. Given her past and recent history of encephalopathy, this should be considered a last resort as it will undoubtedly increase her risk for recurrent encephalopathy. #3. Anemia -- the patient is not overtly bleeding in the gastrointestinal tract at present. Bleeding in the peritoneum is a possibility, but I do not see physical evidence of same. I recommend continued monitoring with transfusion as indicated. I recommend repeat endoscopy should she develop overt gastrointestinal bleeding #4. Hepatic encephalopathy -- the patient has improved consistently since her admission. Today she is very clear with only a hint of somnolence and barely meets criteria for grade 1 encephalopathy. I have reiterated the importance of appropriate dosing with lactulose for prevention of encephalopathy and some consideration could also be given to adding Rifaximin to her regimen. #5. Other specified counseling -- Patient seen for greater than 60 minutes. Greater than 50% of this time was spent counseling regarding differential diagnosis, likely diagnosis,, diagnostic and therapeutic options, risks, benefits, and alternatives to procedures and medications, informed consent, and plan of care generally. Patient has expressed understanding and wishes to proceed. Recommendations: -- ABSTINENCE, ABSTINENCE, ABSTINENCE -- continued aggressive volume and electrolyte control -- continued lactulose -- consider the addition of Rifaximin for encephalopathy prophylaxis -- continued dual diuretic therapy titrated to electrolyte balance and treatment of ascites -- nutrition consult for advice on current diet and counseling of patient regarding maintenance of a low-sodium, liver healthy diet -- repeat therapeutic paracentesis is reasonable -- if patient is unable to sustain ascites with diuretic control, consider referral for TIPS (this should be considered intervention of last resort) -- continue monitoring blood counts with transfusion as indicated -- consider repeat endoscopy with overt evidence of gastrointestinal bleeding -- refer for transplant evaluation once patient has been abstinent for 4-5 months -- regular outpatient follow-up in gastroenterology clinic with Dr. Avalos -- we will continue to follow with you. Dr. Avalos will resume G.I. care for this patient tomorrow
[2017-06-09] MEDS: FUROSEMIDE 40 MG/4 ML VIAL IV SCH (09:52)
[2017-06-09] MEDS: PANTOPRAZOLE 40 MG TABLET PO SCH (09:58)
[2017-06-09] MEDS: METOCLOPRAMIDE 10 MG/10 ML UDCUP PO SCH ×2 (09:58→21:15)
[2017-06-09] MEDS: LACTULOSE 20 GM/30 ML UDCUP PO SCH ×2 (09:59→21:16)
[2017-06-09] MEDS: POTASSIUM CHLORIDE 20 MEQ PACK PO SCH (11:45)
[2017-06-09] MEDS: PROPRANOLOL 10 MG TABLET PO SCH ×2 (16:52→21:14)
--- NOTE | 2017-06-10 07:02 | Gastrointestinal Progress Note ---
Assessment and Plan (1) Hyponatremia Status: Acute Assessment and plan: The hyponatremia in this patient is probably a result of several factors including her cirrhosis which is producing a hyponatremic state in an of itself , the diuretics she is taking including spironolactone and Lasix and her low- sodium diet which was meant to keep excessive fluid from building up in her extremities. She has a low protein state as we can see from her albumin level of 1.9. I agree that she is edematous but I am concerned that giving her further diuretics may exacerbate the low sodium level further. I have not been able to contact Dr. Rodriguez. Not sure that the serum osmolality and urine osmolality will be accurate in the face of ongoing diuretics. We will hold off on ordering these. We can certainly liberalize the patient's salt in her diet in the short-term. If the sodium is worse tomorrow we may consider hypertonic saline in limited volume 06/04/17--Discussed the case with Dr. Avlaro Rodriguez yesterday evening--Lasix does appear to be pulling of the patient's free water with improvement in her sodium up to 120 today, she developed a little bit of hypotension despite use of the blood and albumin to support her oncotic pressure and improve flow to her liver/ kidneys. Her creatinine appears unchanged, fortunately. She is on some pressors at this point. An abdominal binder is being used to produce counterpressure as her paracentesis site is leaking. He may also slightly slow down third spacing by improving intra-abdominal counterpressure. 06/05/17--The sodium level was not checked this morning, have written for a BMP to be done now. Seems to be tolerating the abdominal binder adequately. 06/06/17--Sodium level is 125, as it was yesterday. It would be nice to get this back up into the 130's, this might be hard using the diuresis to keep her hypervolemic fluid status under control. Hate to liberalize the salt in her diet but this may be required, at the pino of increasing her fluid retention/ ascites. My partners will be covering for this patient this weekend perhaps they have a new strategy for managing this issue. 06/10/17--The patient's sodium as of yesterday was 124. CMP from today is still pending, I suspect it will not be much changed. Her sodium level is about the same as when I left but her potassium level has decreased likely as a result of diuretic therapy. She is being aggressively treated with potassium replacement at this point. She is off of all diuretic therapy, I suspect she will probably need some going home--he will be difficult to balance the electrolyte loss with the control of the portal hypertension. Patient's ammonia level has been controllable with relatively low levels of lactulose. I do not see that she is on Xifaxan any longer. The lactulose is running it just twice a day dosing. TIPSS remains an option ultimately. If the patient's electrolytes are somewhere near normal, would like to start her back on half her diuretics that she was taking at home including furosemide 10 mg per day and spironolactone 50 mg per day. Will probably leave this for the hospitalist to restart since I am seeing her early. Will write for electrolytes, CBC, and ammonia level for tomorrow. Perhaps we can consider discharge. Current Visit: Yes (2) Alcoholic cirrhosis of liver with ascites Status: Acute Assessment and plan: This patient does have alcoholic cirrhosis as near as we can figure out. She would not consent to a liver biopsy but certainly has a history consistent with this. She has required serial taps since being diagnosed in November 2016. Her liver function is certainly worse than when she was first seen, bilirubin is now up to four-point was previously a 1.0, this may be due to anemia and intravascular hypovolemia. The patient states that she is abstinent from alcohol and I certainly hope this is true. She is already undergone multiple ultrasounds and has had an AFP done this year. We will give her some albumin and may consider transfusion which may improve her function somewhat. I do not see any gross evidence of GI bleeding but she may have had some with her recent colonoscopy. See below. 06/04/17--The patient has an elevated indirect bilirubin fraction indicating a large amount of hemolyzed blood in the 2 units that the patient received versus the patient's underlying cirrhosis or possibly hemolysis this occurring in the patient's bloodstream. We will simply watch with the bilirubin does over time. Sodium is slowly improving, continue current therapy. 06/05/17--Continue to watch the patient, repeat liver function test tomorrow. 06/06/17--I note again of the patient's bilirubin has improved by about 2 mg/dL and that this is mostly indirect indicating possible hemolysis versus elevation from the transfused blood. Liver function appears to be doing much better now that her intra-vascular volume is being improved with the use of albumin and blood transfusion. 06/10/17--LFTs improved overall, likely back at baseline. Patient did indeed have a liver biopsy done on 05/01/17 which showed micronodular cirrhosis. I had to call the lab to get this as it was not in the computer. Unfortunately the the liver biopsy does not show anything else besides micronodular cirrhosis including steatosis, cholestasis, increased iron or any other cause. We presume the cirrhosis is due to alcohol, but again there is no evidence of steatosis to point towards this cause. Current Visit: Yes (3) Colon cancer Status: Acute Assessment and plan: This was discovered in a descending colon polyp that was removed during a recent endoscopy on 05/16/17. Photographs were taken of this lesion during the colonoscopy which demonstrates a pedunculated polyp even though the pathology is not reflect this. The polyp had to be macerated and cut up significantly during the suctioning phase and so I believe the margins were likely confused at that point. This patient has not a great candidate for surgery and so I was going to return in 6-12 months to repeat the colonoscopy and look at this area and descending again down the road. I do not believe that this is invasive carcinoma given the pedunculated appearance to the polyp removed. The patient has been apprised of the situation and we will talk about it further during her hospitalization. 06/04/17--Thought to be in the patient's descending colon polyp, recheck in 6-12 months with repeat colonoscopy. 06/05/17--Repeat colonoscopy in 6-12 months due to cancer in this polyp. 06/06/17--We talked more about the diagnosis of the colon cancer in the polyp. Specifically the need for repeat colonoscopy in 6-12 months to look for residual polyps/cancer. 06/10/17--again, repeat colonoscopy in 5-11 months. Current Visit: Yes (4) Anemia Status: Acute Assessment and plan: We will transfuse 2 units of packed red blood cells tonight. I think this will help with her liver function and likely with her ability to hold fluids intravascularly which should help with her sodium ultimately. 06/04/17--Posttransfusion the patient's hematocrit went up about 3%. I suspect this will improve further with additional diuresis. The patient's current hematocrit is 28.6%. 06/05/17--Follow patient's hematocrit tomorrow along with LFTs. 06/06/17--The hematocrit posttransfusion appears to be improved to about 29%. Continue to follow this periodically through the hospitalization. 06/10/17--Recheck patient's hematocrit and ammonia level tomorrow. Current Visit: Yes Gastroenterology - PN: Subj Interval history: The patient is feeling a bit groggy this morning, it is my understanding that she is going to be going to get a paracentesis done this morning. INR is now after the weekend that the patient is on half dose of propranolol, zero diuretics, it is about to get a paracentesis. The paracentesis is a very short- term solution for her buildup of fluid. She really will need to be on some form of diuretic therapy going forward, to slow down the frequency of her need for paracentesis in the future Exam (Progress Note) - Constitutional Vitals: Period Temp Pulse Resp BP Sys/Dior Pulse Ox Last 24 Hr 96.9 F-98.3 F 76-97 17-20 90-117/39-64 94-100 General appearance: no acute distress - Head Head exam: Present: normocephalic, atraumatic - Eye Eye exam: Present: EOMI Pupils: Present: YOSSI - Respiratory Respiratory exam: Present: clear to auscultation bilaterally. Absent: rhonchi, stridor, wheezes - Cardiovascular Cardiovascular exam: Present: regular rate and rhythm - GI/Abdominal GI/Abdominal exam: Present: normal bowel sounds, ascites, distended, soft. Absent: guarding, tenderness, rebound - Extremities Exam Extremities exam: Absent: edema - Neurological Exam Neurological exam: Present: alert, oriented X3, altered (Very slightly groggy but this might be from recent awakening) - Psychiatric Psychiatric exam: Present: normal affect, normal mood - Skin Skin exam: Present: warm Results - Labs CBC & BMP: 06/07/17 04:50 06/09/17 03:48
[2017-06-10 07:16] LABS: Albumin 2.5 G/DL (3.4-5.0); Bilirubin,Total 2.6 MG/DL (0.2-1.0); Calcium 8.1 MG/DL (8.5-10.1); Osmolality,Calculated 248.5 MOS/KG (273-304); Potassium 3.3 MMOL/L (3.5-5.1); Total Protein 5.4 G/DL (6.4-8.3)
[2017-06-10] MEDS ORDERED: ALBUMIN 25% 25 GM in PREMIX 1 EACH IV ONE ×2 (08:00→12:30)
[2017-06-10] MEDS: POTASSIUM CHLORIDE 20 MEQ PACK PO SCH (08:34)
[2017-06-10] MEDS: PANTOPRAZOLE 40 MG TABLET PO SCH (08:35)
[2017-06-10] MEDS: LACTULOSE 20 GM/30 ML UDCUP PO SCH ×2 (08:35→21:38)
[2017-06-10] MEDS: PROPRANOLOL 10 MG TABLET PO SCH ×3 (08:35→21:38)
[2017-06-10] MEDS: METOCLOPRAMIDE 10 MG/10 ML UDCUP PO SCH ×2 (08:35→21:38)
[2017-06-10] MEDS: INSULIN REGULAR 100 UNIT/ML SUBCUT SCH ×4 (10:01→21:39)
--- NOTE | 2017-06-10 11:16 | Hospitalist Progress Note ---
Assessment and Plan (1) Alcoholic cirrhosis of liver with ascites Status: Acute Assessment and plan: Patient to undergo paracentesis today has been given albumin 25% and may need repeat after patient return from paracentesis. She is still off diuretic due to hyponatremia and hypotension being followed by the GI TIPPS as alternate option if continued to have need for frequent paracentesis will defer to GI. Current Visit: Yes (2) Anemia Status: Chronic Assessment and plan: Stable Current Visit: Yes (3) Colon cancer Status: Acute Current Visit: Yes (4) Hyponatremia Status: Acute Assessment and plan: Patient had severe hyponatremia on 06/03/2017 likely due to decompensated liver disease with ascites not sure about a daily with had a increase to 124 next day and since then it has been stable overall. I will check urine for stability and urine sodium patient remain off diuretics. Hypotension noted will add midodrine Current Visit: Yes Hospitalist: Subjective Interval history: Ms. harmon is a 56-year-old child female with history of alcoholic cirrhosis ascites. She was admitted on 06/03/2017 with abdominal distention without any fever or chills. She was also noted to have hyponatremia on admission. She had paracentesis after admission and is scheduled again for paracentesis due to increased distention. Patient has been followed by the GI and was seen by Dr. Avalos today. She also has been on lactulose to prevent encephalopathy. Patient is awake alert and question answering question appropriately denies any fever no nausea vomiting Exam - Constitutional Vitals: Period Temp Pulse Resp BP Sys/Dior Pulse Ox Last 24 Hr 97.5 F-98.3 F 72-83 16-20 87-117/47-64 92-100 General appearance: no acute distress - Head Head exam: Present: normal inspection, normocephalic, atraumatic - Eye Eye exam: Present: EOMI Pupils: Present: YOSSI - Respiratory Respiratory exam: Present: clear to auscultation bilaterally. Absent: rales, rhonchi - Cardiovascular Cardiovascular exam: Present: regular rate and rhythm. Absent: tachycardia - GI/Abdominal GI/Abdominal exam: Present: normal bowel sounds, ascites, distended, soft. Absent: tenderness - Extremities Exam Extremities exam: Present: edema (Bilateral 3+ extremities lower edema present) - Neurological Exam Neurological exam: Present: alert Results - Labs CBC & BMP: 06/07/17 04:50 06/10/17 06:07 Lab Results: I have reviewed the past 24 hour labs Quality Measures - VTE Contraindication to Pharmacological VTE Prophylaxis: Coagulopathy
--- NOTE | 2017-06-10 11:30 | Post Interventional Procedure ---
Pre-op diagnosis: cirrhosis with ascites Post-op diagnosis: same Procedure: u/s guided paracentesis Contrast: none Flouroscopy: none Radiologist: Nito Smith Anesthesia: local Specimens: none sent Estimated blood loss: none Complications: none Condition: stable Description/Findings: 4000 mL serous ascitic fluid removed patient tolerated procedure well - remains hypotensive but completely asymptomatic Assessment and Plan - Time spent with patient Time spent with patient: Less than 30 minutes
--- NOTE | 2017-06-10 11:34 | Ultrasound Report ---
Exam: Ultrasound-guided paracentesis Clinical history: Cirrhosis with recurrent ascites. Physician: Dr. Smith. Procedure: Informed consent was obtained prior to procedure. A formal timeout was performed. Maximum sterile barrier technique was used. The right lower quadrant was prepped and draped in sterile fashion. Under sonographic guidance, a 6 Hungarian safety centesis catheter and needle were advanced into the ascites using trocar technique. A captured sonographic image documents needle position. The needle was removed. Through the catheter, we obtained a total of 4000 and cc of straw-colored ascites. No additional fluid could be obtained. Therefore, the catheter was removed. A bandage was placed at the puncture site. The patient tolerated the procedure well. Complications: None. Estimated blood loss: Less than 5 mL. Impression: Technically successful ultrasound guided paracentesis. PROCEDURE INTERPRETED AT [facility] DEPARTMENT OF RADIOLOGY Final Report Signed by: Nito Smith
[2017-06-10] MEDS: MIDODRINE 5 MG TABLET PO SCH ×2 (15:07→21:38)
[2017-06-11 06:42] LABS: Basophils % 0.5 % (0.0-0.8); Eosinophils # 0.2 10*3/uL (0.0-0.87); Eosinophils % 2.3 % (0.00-10.9); Hemoglobin 10.3 GM/DL (12.0-16.0); Immature Granulocytes % 0.6 %; Immature Granulocytes Absolute 0.04 #; Lymphocytes # 1.5 10*3/uL (1.4-4.0); Lymphocytes % 22.1 % (21.3-54.2); Mean Corpuscular HGB Conc 36.8 GM/DL (32-36); Mean Corpuscular Hemoglobin 35 PG (27-34); Mean Corpuscular Volume 94.6 FL (87-102); Mean Platelet Volume 10.6 FL (9.6-12.0); Monocytes # 1.2 10*3/uL (0.11-0.8); Monocytes % 17.8 % (1.7-12.7); Neutrophils # 3.7 10*3/uL (1.4-7.4); Neutrophils % 56.7 % (38.7-73.9); Red Blood Count 2.96 MC/CUMM (3.8-5.5); Red Cell Distribution Width 18.2 % (9.3-17.3); White Blood Count 6.6 T/CUMM (4-12)
[2017-06-11 06:46] LABS: Platelet Count 80 T/CUMM (130-400)
[2017-06-11 07:03] LABS: Eosinophils 3 % (0-10); Lymphocytes 20 % (20-55); Segmented Neutrophils 57 % (50-85); Total Cells Counted 100
[2017-06-11 07:04] LABS: Giant Platelets Few; Hypochromasia 1+; Microcytosis Slight; Ovalocytes Slight; Platelet Estimate Decreased
[2017-06-11 07:14] LABS: Calcium 8.1 MG/DL (8.5-10.1); Osmolality,Calculated 250.4 MOS/KG (273-304); Potassium 3.5 MMOL/L (3.5-5.1)
[2017-06-11 07:17] LABS: Albumin 2.9 G/DL (3.4-5.0); Bilirubin,Total 3.6 MG/DL (0.2-1.0); Calcium 8.1 MG/DL (8.5-10.1); Osmolality,Calculated 248.5 MOS/KG (273-304); Potassium 3.5 MMOL/L (3.5-5.1); Total Protein 5.6 G/DL (6.4-8.3)
--- NOTE | 2017-06-11 09:03 | Gastrointestinal Progress Note ---
Assessment and Plan (1) Hyponatremia Status: Acute Assessment and plan: The hyponatremia in this patient is probably a result of several factors including her cirrhosis which is producing a hyponatremic state in an of itself , the diuretics she is taking including spironolactone and Lasix and her low- sodium diet which was meant to keep excessive fluid from building up in her extremities. She has a low protein state as we can see from her albumin level of 1.9. I agree that she is edematous but I am concerned that giving her further diuretics may exacerbate the low sodium level further. I have not been able to contact Dr. Rodriguez. Not sure that the serum osmolality and urine osmolality will be accurate in the face of ongoing diuretics. We will hold off on ordering these. We can certainly liberalize the patient's salt in her diet in the short-term. If the sodium is worse tomorrow we may consider hypertonic saline in limited volume 06/04/17--Discussed the case with Dr. Alvaro Rodriguez yesterday evening--Lasix does appear to be pulling of the patient's free water with improvement in her sodium up to 120 today, she developed a little bit of hypotension despite use of the blood and albumin to support her oncotic pressure and improve flow to her liver/ kidneys. Her creatinine appears unchanged, fortunately. She is on some pressors at this point. An abdominal binder is being used to produce counterpressure as her paracentesis site is leaking. He may also slightly slow down third spacing by improving intra-abdominal counterpressure. 06/05/17--The sodium level was not checked this morning, have written for a BMP to be done now. Seems to be tolerating the abdominal binder adequately. 06/06/17--Sodium level is 125, as it was yesterday. It would be nice to get this back up into the 130's, this might be hard using the diuresis to keep her hypervolemic fluid status under control. Hate to liberalize the salt in her diet but this may be required, at the pino of increasing her fluid retention/ ascites. My partners will be covering for this patient this weekend perhaps they have a new strategy for managing this issue. 06/10/17--The patient's sodium as of yesterday was 124. CMP from today is still pending, I suspect it will not be much changed. Her sodium level is about the same as when I left but her potassium level has decreased likely as a result of diuretic therapy. She is being aggressively treated with potassium replacement at this point. She is off of all diuretic therapy, I suspect she will probably need some going home--he will be difficult to balance the electrolyte loss with the control of the portal hypertension. Patient's ammonia level has been controllable with relatively low levels of lactulose. I do not see that she is on Xifaxan any longer. The lactulose is running it just twice a day dosing. TIPSS remains an option ultimately. If the patient's electrolytes are somewhere near normal, would like to start her back on half her diuretics that she was taking at home including furosemide 10 mg per day and spironolactone 50 mg per day. Will probably leave this for the hospitalist to restart since I am seeing her early. Will write for electrolytes, CBC, and ammonia level for tomorrow. Perhaps we can consider discharge. 06/11/17--the patient's sodium level has not changed significantly. Potassium has improved slightly I think we can go ahead and restart low-dose diuretics at this point. Midodrine is being titrated in order to control the patient's hypertension. Although tips remains an option we need to see if we can control this patient with lower doses of diuretics and monitor electrolytes better. The patient continues to work at this point despite the fact that she has severe cirrhosis with recurrent ascites and hyponatremia/hepatic encephalopathy. She is a disability candidate in my opinion. And we can certainly proceed along those lines, I do not see her meaningfully returning to work at this point. Current Visit: Yes (2) Alcoholic cirrhosis of liver with ascites Status: Acute Assessment and plan: This patient does have alcoholic cirrhosis as near as we can figure out. She would not consent to a liver biopsy but certainly has a history consistent with this. She has required serial taps since being diagnosed in November 2016. Her liver function is certainly worse than when she was first seen, bilirubin is now up to four-point was previously a 1.0, this may be due to anemia and intravascular hypovolemia. The patient states that she is abstinent from alcohol and I certainly hope this is true. She is already undergone multiple ultrasounds and has had an AFP done this year. We will give her some albumin and may consider transfusion which may improve her function somewhat. I do not see any gross evidence of GI bleeding but she may have had some with her recent colonoscopy. See below. 06/04/17--The patient has an elevated indirect bilirubin fraction indicating a large amount of hemolyzed blood in the 2 units that the patient received versus the patient's underlying cirrhosis or possibly hemolysis this occurring in the patient's bloodstream. We will simply watch with the bilirubin does over time. Sodium is slowly improving, continue current therapy. 06/05/17--Continue to watch the patient, repeat liver function test tomorrow. 06/06/17--I note again of the patient's bilirubin has improved by about 2 mg/dL and that this is mostly indirect indicating possible hemolysis versus elevation from the transfused blood. Liver function appears to be doing much better now that her intra-vascular volume is being improved with the use of albumin and blood transfusion. 06/10/17--LFTs improved overall, likely back at baseline. Patient did indeed have a liver biopsy done on 05/01/17 which showed micronodular cirrhosis. I had to call the lab to get this as it was not in the computer. Unfortunately the the liver biopsy does not show anything else besides micronodular cirrhosis including steatosis, cholestasis, increased iron or any other cause. We presume the cirrhosis is due to alcohol, but again there is no evidence of steatosis to point towards this cause. 06/11/17--Her bilirubin went up again, hopefully she has not had another bleeding episode. Continue to monitor the patient's electrolytes, as diuretics are resumed. Current Visit: Yes (3) Colon cancer Status: Acute Assessment and plan: This was discovered in a descending colon polyp that was removed during a recent endoscopy on 05/16/17. Photographs were taken of this lesion during the colonoscopy which demonstrates a pedunculated polyp even though the pathology is not reflect this. The polyp had to be macerated and cut up significantly during the suctioning phase and so I believe the margins were likely confused at that point. This patient has not a great candidate for surgery and so I was going to return in 6-12 months to repeat the colonoscopy and look at this area and descending again down the road. I do not believe that this is invasive carcinoma given the pedunculated appearance to the polyp removed. The patient has been apprised of the situation and we will talk about it further during her hospitalization. 06/04/17--Thought to be in the patient's descending colon polyp, recheck in 6-12 months with repeat colonoscopy. 06/05/17--Repeat colonoscopy in 6-12 months due to cancer in this polyp. 06/06/17--We talked more about the diagnosis of the colon cancer in the polyp. Specifically the need for repeat colonoscopy in 6-12 months to look for residual polyps/cancer. 06/10/17--again, repeat colonoscopy in 5-11 months. 06/11/17--As per above. Current Visit: Yes (4) Anemia Status: Chronic Assessment and plan: We will transfuse 2 units of packed red blood cells tonight. I think this will help with her liver function and likely with her ability to hold fluids intravascularly which should help with her sodium ultimately. 06/04/17--Posttransfusion the patient's hematocrit went up about 3%. I suspect this will improve further with additional diuresis. The patient's current hematocrit is 28.6%. 06/05/17--Follow patient's hematocrit tomorrow along with LFTs. 06/06/17--The hematocrit posttransfusion appears to be improved to about 29%. Continue to follow this periodically through the hospitalization. 06/10/17--Recheck patient's hematocrit and ammonia level tomorrow. 06/11/17--I note the patient's hematocrit is down to 28%, will need to continue to observe this trend. Current Visit: Yes Gastroenterology - PN: Subj Interval history: The patient is complaining of multiple non-GI related issues including the sensation that she has gotten a urinary tract infection. I have ordered a urinalysis and urine culture/sensitivity. 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 I can certainly accomplish this if she provides me with the landscaping supervisor's name/address to write this in support of her case. She may have to go through [place] planning coordinator. Exam (Progress Note) - Constitutional Vitals: Period Temp Pulse Resp BP Sys/Dior Pulse Ox Last 24 Hr 97.8 F-99.1 F 72-87 16-20 83-107/42-62 94-100 General appearance: mild distress - Head Head exam: Present: normocephalic - Eye Eye exam: Present: EOMI. Absent: scleral icterus - Respiratory Respiratory exam: Present: clear to auscultation bilaterally. Absent: rhonchi, stridor, wheezes - Cardiovascular Cardiovascular exam: Present: regular rate and rhythm - GI/Abdominal GI/Abdominal exam: Present: normal bowel sounds, ascites, distended, soft. Absent: tenderness, rebound - Extremities Exam Extremities exam: Present: edema - Neurological Exam Neurological exam: Present: alert, oriented X3 - Psychiatric Psychiatric exam: Present: normal affect, normal mood Results - Labs CBC & BMP: 06/11/17 06:05 06/11/17 06:05
[2017-06-11] MEDS: POTASSIUM CHLORIDE 20 MEQ PACK PO SCH (09:13)
[2017-06-11] MEDS: METOCLOPRAMIDE 10 MG/10 ML UDCUP PO SCH ×2 (09:13→20:09)
[2017-06-11] MEDS: LACTULOSE 20 GM/30 ML UDCUP PO SCH ×2 (09:13→20:09)
[2017-06-11] MEDS: PANTOPRAZOLE 40 MG TABLET PO SCH (09:13)
[2017-06-11] MEDS: MIDODRINE 5 MG TABLET PO SCH ×3 (09:14→20:09)
[2017-06-11] MEDS: PROPRANOLOL 10 MG TABLET PO SCH ×3 (09:14→20:09)
[2017-06-11] MEDS: INSULIN REGULAR 100 UNIT/ML SUBCUT SCH ×4 (09:20→21:34)
[2017-06-11 14:39] LABS: Apearance,Urine Clear (Clear); Bacteria,Urine Occasional /HPF (Few); Bilirubin,Urine Moderate mg/dL (Negative); Blood, Urine Trace mg/dL (Negative); Glucose,Urine (UA) Negative (Negative); Ketones,Urine Negative (Negative); Mucus,Urine Occasional /LPF (Occasional); Nitrite,Urine Negative (Negative); Protein,Urine 30 MG/DL; RBC,Urine 12 /HPF (0-4); Squamous Epithelial Cell,Urine Occasional /HPF (0-10); Urine Color Amber (Yellow); WBC,Urine 254 /HPF (0-6)
--- NOTE | 2017-06-11 15:30 | Hospitalist Progress Note ---
Assessment and Plan (1) Alcoholic cirrhosis of liver with ascites Status: Acute Assessment and plan: Being followed by the GI. Patient post paracentesis with improvement. She has been started on diuretics at a lower dose sent home will watch and that. Talking to the patient seems like she was not compliant to diet and consuming high sodium food. She is encouraged to stop consuming low-salt diet. Will consult nutrition to assist with that. Will likely discharge if remaining stable blood pressure seems to be improved with midodrine Current Visit: Yes (2) Anemia Status: Chronic Assessment and plan: Will check hemoglobin tomorrow for stability Current Visit: Yes (3) Colon cancer Status: Acute Current Visit: Yes (4) Hyponatremia Status: Acute Assessment and plan: Patient had severe hyponatremia on 06/03/2017 likely due to decompensated liver disease with ascites it improved and had been stable since then. She had a sodium avid state which explain by the high urine osmolality and very low sodium in the urine. Need to stay on sodium restriction restriction will see how she does on diuretics Current Visit: Yes (5) Thrombocytopenia Status: Chronic Assessment and plan: Likely secondary to liver disease with the hypersplenism. It is been stable overall Current Visit: Yes Hospitalist: Subjective Interval history: Patient underwent paracentesis yesterday with a 4 L taken out from abdomen. GI has started on diuretics. Patient has no acute complaint denies any fever nausea vomiting. Abdominal pain has improved but still have leg swelling Exam - Constitutional Vitals: Period Temp Pulse Resp BP Sys/Dior Pulse Ox Last 24 Hr 97.5 F-99.1 F 75-87 18-20 83-112/42-62 95-99 General appearance: no acute distress - Respiratory Respiratory exam: Present: clear to auscultation bilaterally. Absent: rales, rhonchi - Cardiovascular Cardiovascular exam: Present: regular rate and rhythm. Absent: tachycardia - GI/Abdominal GI/Abdominal exam: Present: normal bowel sounds, ascites improved significantly , distended less than examined yesterday, soft. Absent: tenderness - Extremities Exam Extremities exam: Present: edema (Bilateral 3+ extremities lower edema present) - Neurological Exam Neurological exam: Present: alert Results - Labs CBC & BMP: 06/11/17 06:05 06/11/17 06:05 Lab Results: I have reviewed the past 24 hour labs Quality Measures - VTE Contraindication to Pharmacological VTE Prophylaxis: Coagulopathy
[2017-06-12 06:38] LABS: Hematocrit 27.3 VOL% (35.7-47.0)
[2017-06-12 07:02] LABS: Albumin 2.7 G/DL (3.4-5.0); Bilirubin,Total 1.8 MG/DL (0.2-1.0); Osmolality,Calculated 247.5 MOS/KG (273-304); Potassium 3.8 MMOL/L (3.5-5.1); Total Protein 5.3 G/DL (6.4-8.3)
[2017-06-12 07:10] LABS: Calcium 8.1 MG/DL (8.5-10.1); Osmolality,Calculated 247.5 MOS/KG (273-304); Potassium 3.7 MMOL/L (3.5-5.1)
[2017-06-12] MEDS: PROPRANOLOL 10 MG TABLET PO SCH ×2 (08:35→16:05)
[2017-06-12] MEDS: MIDODRINE 5 MG TABLET PO SCH ×2 (08:36→16:06)
[2017-06-12] MEDS: POTASSIUM CHLORIDE 20 MEQ PACK PO SCH (08:37)
[2017-06-12] MEDS: METOCLOPRAMIDE 10 MG/10 ML UDCUP PO SCH (08:37)
[2017-06-12] MEDS: LACTULOSE 20 GM/30 ML UDCUP PO SCH (08:37)
[2017-06-12] MEDS: PANTOPRAZOLE 40 MG TABLET PO SCH (08:37)
[2017-06-12] MEDS: INSULIN REGULAR 100 UNIT/ML SUBCUT SCH ×3 (08:42→16:53)
--- NOTE | 2017-06-12 08:53 | Gastrointestinal Progress Note ---
Assessment and Plan (1) Hyponatremia Status: Acute Assessment and plan: The hyponatremia in this patient is probably a result of several factors including her cirrhosis which is producing a hyponatremic state in an of itself , the diuretics she is taking including spironolactone and Lasix and her low- sodium diet which was meant to keep excessive fluid from building up in her extremities. She has a low protein state as we can see from her albumin level of 1.9. I agree that she is edematous but I am concerned that giving her further diuretics may exacerbate the low sodium level further. I have not been able to contact Dr. Rodriguez. Not sure that the serum osmolality and urine osmolality will be accurate in the face of ongoing diuretics. We will hold off on ordering these. We can certainly liberalize the patient's salt in her diet in the short-term. If the sodium is worse tomorrow we may consider hypertonic saline in limited volume 06/04/17--Discussed the case with Dr. Alvaro Rodriguez yesterday evening--Lasix does appear to be pulling of the patient's free water with improvement in her sodium up to 120 today, she developed a little bit of hypotension despite use of the blood and albumin to support her oncotic pressure and improve flow to her liver/ kidneys. Her creatinine appears unchanged, fortunately. She is on some pressors at this point. An abdominal binder is being used to produce counterpressure as her paracentesis site is leaking. He may also slightly slow down third spacing by improving intra-abdominal counterpressure. 06/05/17--The sodium level was not checked this morning, have written for a BMP to be done now. Seems to be tolerating the abdominal binder adequately. 06/06/17--Sodium level is 125, as it was yesterday. It would be nice to get this back up into the 130's, this might be hard using the diuresis to keep her hypervolemic fluid status under control. Hate to liberalize the salt in her diet but this may be required, at the pino of increasing her fluid retention/ ascites. My partners will be covering for this patient this weekend perhaps they have a new strategy for managing this issue. 06/10/17--The patient's sodium as of yesterday was 124. CMP from today is still pending, I suspect it will not be much changed. Her sodium level is about the same as when I left but her potassium level has decreased likely as a result of diuretic therapy. She is being aggressively treated with potassium replacement at this point. She is off of all diuretic therapy, I suspect she will probably need some going home--he will be difficult to balance the electrolyte loss with the control of the portal hypertension. Patient's ammonia level has been controllable with relatively low levels of lactulose. I do not see that she is on Xifaxan any longer. The lactulose is running it just twice a day dosing. TIPSS remains an option ultimately. If the patient's electrolytes are somewhere near normal, would like to start her back on half her diuretics that she was taking at home including furosemide 10 mg per day and spironolactone 50 mg per day. Will probably leave this for the hospitalist to restart since I am seeing her early. Will write for electrolytes, CBC, and ammonia level for tomorrow. Perhaps we can consider discharge. 06/11/17--the patient's sodium level has not changed significantly. Potassium has improved slightly I think we can go ahead and restart low-dose diuretics at this point. Midodrine is being titrated in order to control the patient's hypertension. Although tips remains an option we need to see if we can control this patient with lower doses of diuretics and monitor electrolytes better. The patient continues to work at this point despite the fact that she has severe cirrhosis with recurrent ascites and hyponatremia/hepatic encephalopathy. She is a disability candidate in my opinion. And we can certainly proceed along those lines, I do not see her meaningfully returning to work at this point. 06/12/17--Patient's sodium level remains stable. She has been reinitiated on low -dose diuretics, potassium is up slightly possibly due to the Spironolactone. She can certainly be discharged in my opinion at this time. She is a disability candidate, I will be writing a letter of disability support to Alicia Carrera, credit risk analytics manager of her [employer] insurance agency., this patient could certainly be discharged on her present medications to follow-up with me in the next 4 weeks, or when she feels her next paracentesis will be needed, if sooner. Current Visit: Yes (2) Alcoholic cirrhosis of liver with ascites Status: Acute Assessment and plan: This patient does have alcoholic cirrhosis as near as we can figure out. She would not consent to a liver biopsy but certainly has a history consistent with this. She has required serial taps since being diagnosed in November 2016. Her liver function is certainly worse than when she was first seen, bilirubin is now up to four-point was previously a 1.0, this may be due to anemia and intravascular hypovolemia. The patient states that she is abstinent from alcohol and I certainly hope this is true. She is already undergone multiple ultrasounds and has had an AFP done this year. We will give her some albumin and may consider transfusion which may improve her function somewhat. I do not see any gross evidence of GI bleeding but she may have had some with her recent colonoscopy. See below. 06/04/17--The patient has an elevated indirect bilirubin fraction indicating a large amount of hemolyzed blood in the 2 units that the patient received versus the patient's underlying cirrhosis or possibly hemolysis this occurring in the patient's bloodstream. We will simply watch with the bilirubin does over time. Sodium is slowly improving, continue current therapy. 06/05/17--Continue to watch the patient, repeat liver function test tomorrow. 06/06/17--I note again of the patient's bilirubin has improved by about 2 mg/dL and that this is mostly indirect indicating possible hemolysis versus elevation from the transfused blood. Liver function appears to be doing much better now that her intra-vascular volume is being improved with the use of albumin and blood transfusion. 06/10/17--LFTs improved overall, likely back at baseline. Patient did indeed have a liver biopsy done on 05/01/17 which showed micronodular cirrhosis. I had to call the lab to get this as it was not in the computer. Unfortunately the the liver biopsy does not show anything else besides micronodular cirrhosis including steatosis, cholestasis, increased iron or any other cause. We presume the cirrhosis is due to alcohol, but again there is no evidence of steatosis to point towards this cause. 06/11/17--Her bilirubin went up again, hopefully she has not had another bleeding episode. Continue to monitor the patient's electrolytes, as diuretics are resumed. 06/12/17--The bilirubin is back down to its baseline once again down from 3.6--> 1.8 again today.. I am not sure why this transiently increased. She is stable for discharge from my standpoint. Current Visit: Yes (3) Colon cancer Status: Acute Assessment and plan: This was discovered in a descending colon polyp that was removed during a recent endoscopy on 05/16/17. Photographs were taken of this lesion during the colonoscopy which demonstrates a pedunculated polyp even though the pathology is not reflect this. The polyp had to be macerated and cut up significantly during the suctioning phase and so I believe the margins were likely confused at that point. This patient has not a great candidate for surgery and so I was going to return in 6-12 months to repeat the colonoscopy and look at this area and descending again down the road. I do not believe that this is invasive carcinoma given the pedunculated appearance to the polyp removed. The patient has been apprised of the situation and we will talk about it further during her hospitalization. 06/04/17--Thought to be in the patient's descending colon polyp, recheck in 6-12 months with repeat colonoscopy. 06/05/17--Repeat colonoscopy in 6-12 months due to cancer in this polyp. 06/06/17--We talked more about the diagnosis of the colon cancer in the polyp. Specifically the need for repeat colonoscopy in 6-12 months to look for residual polyps/cancer. 06/10/17--again, repeat colonoscopy in 5-11 months. 06/11/17--As per above. 06/12/17--She needs to repeat colonoscopy in 5-11 months as mentioned above. Current Visit: Yes (4) Anemia Status: Chronic Assessment and plan: We will transfuse 2 units of packed red blood cells tonight. I think this will help with her liver function and likely with her ability to hold fluids intravascularly which should help with her sodium ultimately. 06/04/17--Posttransfusion the patient's hematocrit went up about 3%. I suspect this will improve further with additional diuresis. The patient's current hematocrit is 28.6%. 06/05/17--Follow patient's hematocrit tomorrow along with LFTs. 06/06/17--The hematocrit posttransfusion appears to be improved to about 29%. Continue to follow this periodically through the hospitalization. 06/10/17--Recheck patient's hematocrit and ammonia level tomorrow. 06/11/17--I note the patient's hematocrit is down to 28%, will need to continue to observe this trend. 06/12/17--Hematocrit remains stable at this time. Currently 27.3%. Current Visit: Yes Gastroenterology - PN: Subj Interval history: Received a paper from the patient concerning a letter that she wants to have written to Alicia Carrera, the credit risk analytics manager of her [employer] insurance. Otherwise she is experiencing some mild pain of her abdomen in general from recent fluid withdrawal however is otherwise doing fine, up and walking around some. Her electrolytes do not seem to be particularly bothered by recent reinitiation of oral diuretics. Her bilirubin has improved back down to its baseline, hematocrit is remaining fairly stable. Exam (Progress Note) - Constitutional Vitals: Period Temp Pulse Resp BP Sys/Dior Pulse Ox Last 24 Hr 97.0 F-98.4 F 64-77 18-20 78-112/41-61 94-100 General appearance: mild distress - Head Head exam: Present: normocephalic, atraumatic - Eye Eye exam: Present: EOMI Pupils: Present: YOSSI - Respiratory Respiratory exam: Present: clear to auscultation bilaterally. Absent: rhonchi, stridor, wheezes - Cardiovascular Cardiovascular exam: Present: regular rate and rhythm - GI/Abdominal GI/Abdominal exam: Present: normal bowel sounds, soft. Absent: distended, tenderness, rebound - Extremities Exam Extremities exam: Absent: edema - Neurological Exam Neurological exam: Present: alert, oriented X3 - Psychiatric Psychiatric exam: Present: normal affect, normal mood - Skin Skin exam: Present: warm Results - Labs CBC & BMP: 06/12/17 05:29 06/12/17 05:29
[2017-06-12] MEDS ORDERED: FUROSEMIDE 20 MG TABLET PO SCH (09:00)
[2017-06-12] MEDS ORDERED: CIPROFLOXACIN 500 MG TABLET PO SCH (09:00)
[2017-06-12] MEDS ORDERED: SPIRONOLACTONE 50 MG TABLET PO SCH (09:00)
--- NOTE | 2017-06-12 12:22 | Discharge Summary ---
Hospital Course - Hospital Course Hospital Course: Ms. harmon is a 56-year-old child female with history of alcoholic cirrhosis ascites. She was admitted on 06/03/2017 with abdominal distention without any fever or chills. She was also noted to have hyponatremia on admission her sodium level was 113. She had no leukocytosis. She was on given IV furosemide after admission she underwent paracentesis twice. Her renal function remained stable sodium improved next day to 124. Remained stable at 125 daily. she had been hypotensive I have the given her midodrine at 5 mg her blood pressure recent is 91/48 and she is not orthostatic. I will increase to 10 mg 3 times daily at the time of discharge. Workup suggest her hyponatremia was from decompensated liver disease with ascites and probably noncompliance to diet and medication. I had a lengthy discussion and counseled about the low sodium diet. I will start back on 20 mg Lasix daily at the time of discharge with 50 mg spironolactone. She was seen by Dr. Avalos. And lactulose was continued for encephalopathy. Today she remained asymptomatic her belly is soft and unchanged from yesterday distention is better after a couple of paracentesis. She has edema of lower extremities improved and last 2 days. She had received albumin with paracentesis. She had received maximum benefit from hospitalization with discharge. She need to follow-up with her primary care provider Dr. Romero next week and Dr. Avalos as scheduled and return to the hospital if symptoms recur Diagnosis - Discharge Diagnosis (1) Alcoholic cirrhosis of liver with ascites Status: Acute (2) Anemia Status: Chronic (3) Colon cancer Status: Acute (4) Hyponatremia Status: Acute (5) Thrombocytopenia Status: Chronic Discharge Plan - Discharge Data Disposition: Disch To Home/Self Care Condition at Discharge: Stable Discharge Diet: advance to your usual diet Activity: resume usual activities as tolerated - Discharge Medications New Ciprofloxacin Tab [Cipro Tab] 500 mg PO Q12HR #14 tablet Spironolactone [Aldactone] 50 mg PO DAILY #30 tablet Midodrine [Proamatine] 10 mg PO TID #30 tablet Lactulose Liquid [Chronulac] 20 gm PO BID Propranolol Tab [Inderal Tab] 5 mg PO TID tablet Continue Metoclopramide Liquid [Reglan Liquid] 5 mg PO BID Pantoprazole Tab [Protonix Tab] 40 mg PO DAILY Propranolol Tab [Inderal Tab] 10 mg PO TID Furosemide Tab [Lasix Tab] 20 mg PO DAILY #30 Discontinued Spironolactone [Aldactone] 100 mg PO DAILY - Follow Up or Referral Follow Up: Manuelito Avalos MD [Physician] - Alona Romero [REFERRING DOCTOR/PRACTITIONER] - - Forms/Instructions Exam - Constitutional Vitals: Period Temp Pulse Resp BP Sys/Dior Pulse Ox Last 24 Hr 97.0 F-98.5 F 64-74 18-20 78-105/41-60 94-100 General appearance: no acute distress - Respiratory Respiratory exam: Present: clear to auscultation bilaterally. Absent: rales, rhonchi - Cardiovascular Cardiovascular exam: Present: regular rate and rhythm. Absent: tachycardia - GI/Abdominal GI/Abdominal exam: Present: normal bowel sounds, ascites improved significantly , distended less than examined yesterday, soft. Absent: tenderness - Extremities Exam Extremities exam: Present: edema (Bilateral 3+ extremities lower edema present) - Neurological Exam Neurological exam: Present: alert Discharge Results Procedures and tests throughout hospitalization: Pending Orders 06/11/17 Urine Culture Routine Labs on day of discharge: Labs from last 24 hours 06/12/17 06/12/17 06/12/17 11:20 06:59 05:29 Hgb Hct Sodium 125 L Potassium 3.7 Chloride 89 L Carbon Dioxide 29 Anion Gap 10.7 BUN 7 Creatinine 0.50 L GFR Calculation 106 BUN/Creatinine Ratio 14.00 Glucose 82 POC Glucose 155 H 92 Calculated Osmolality 247.5 L Calcium 8.1 L Total Bilirubin AST ALT Alkaline Phosphatase Total Protein Albumin Globulin Albumin/Globulin Ratio Urine Color Urine Appearance Urine pH Ur Specific [place] Urine Protein Urine Glucose (UA) Urine Ketones Urine Blood Urine Nitrate Urine Bilirubin Urine Urobilinogen Urine Leukocytes Urine RBC Urine WBC Urine WBC Clumps Ur Squamous Epith Cells Urine Bacteria Urine Mucus Ur Culture Indicated? Ur Random Sodium 06/12/17 06/12/17 06/11/17 05:29 05:29 20:07 Hgb 10.0 L Hct 27.3 L Sodium 125 L Potassium 3.8 Chloride 88 L Carbon Dioxide 30 Anion Gap 10.8 BUN 6 L Creatinine 0.50 L GFR Calculation 106 BUN/Creatinine Ratio 12.00 Glucose 82 POC Glucose 119 H Calculated Osmolality 247.5 L Calcium 8.0 L Total Bilirubin 1.80 H AST 17 ALT 16 Alkaline Phosphatase 121 H Total Protein 5.3 L Albumin 2.7 L Globulin 2.6 Albumin/Globulin Ratio 1.0 L Urine Color Urine Appearance Urine pH Ur Specific [place] Urine Protein Urine Glucose (UA) Urine Ketones Urine Blood Urine Nitrate Urine Bilirubin Urine Urobilinogen Urine Leukocytes Urine RBC Urine WBC Urine WBC Clumps Ur Squamous Epith Cells Urine Bacteria Urine Mucus Ur Culture Indicated? Ur Random Sodium 06/11/17 06/11/17 06/11/17 15:14 12:48 12:48 Hgb Hct Sodium Potassium Chloride Carbon Dioxide Anion Gap BUN Creatinine GFR Calculation BUN/Creatinine Ratio Glucose POC Glucose 105 Calculated Osmolality Calcium Total Bilirubin AST ALT Alkaline Phosphatase Total Protein Albumin Globulin Albumin/Globulin Ratio Urine Color [place] Urine Appearance Clear Urine pH 5.0 Ur Specific [place] 1.020 Urine Protein 30 Urine Glucose (UA) Negative Urine Ketones Negative Urine Blood Trace Urine Nitrate Negative Urine Bilirubin Moderate H Urine Urobilinogen 2.0 H Urine Leukocytes Moderate H Urine RBC 12 Urine WBC 254 Urine WBC Clumps Many Ur Squamous Epith Cells Occasional Urine Bacteria Occasional Urine Mucus Occasional Ur Culture Indicated? Results to follow Ur Random Sodium < 5.0 Preliminary micro results at discharge 06/11/17 Unknown Urine Culture - Preliminary Urine,Clean Catch Gram Negative Rods DS: Provider Date of admission: 06/03/17 16:02 Primary care physician: Nayeli Suarez MD Attending physician on admission: Zi Cruz MD Consults: 06/03/17 16:07 Consult to Physician [CONS] Routine Comment: Consulting Provider: Manuelito Avalos When should Consulting Provider be notified: Now Discharging clinician: Skip Blevins MD
[2017-06-12 16:00] VITALS: BP 94/50
== END 2017-06-12 16:51 | disposition home or self-care (01) | DRG 432 ==
LOC: N.ED 11:08 → SUATTDRO 16:02 → N.EDINP 16:02 → N.ICU 17:04 → N.2E 06-05 14:57
PROVIDERS: ADMIT Family Medicine; ATTEND Internal Medicine